=== PATIENT | male | born 1985 | race Caucasian/White ===

== ENCOUNTER 2021-01-24 23:40 | Observation (INO) | payer MEDICAID, SELFPAY ==
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
[2021-01-24 23:49] VITALS: BP 138/101; PULSE 100; RESP 16; O2SAT 98
[2021-01-25 00:25] LABS: *AMPHETAMINES SCREEN URINE Negative (Negative); *BARBITURATES SCREEN URINE Negative (Negative); *BENZODIAZEPINES SCREEN URINE Negative (Negative); Cannabinoids THC Negative (Negative); Cocaine Screen,Urine Negative (Negative); METHADONE URINE SCREEN Negative (Negative); OPIATES URINE SCREEN Negative (Negative); Tricyclic Antidepressants Negative (Negative)
[2021-01-25 00:51] LABS: Acetaminophen < 2 ug/mL (10-30); Salicylate < 2.8 mg/dL (<2.8)
[2021-01-25 00:55] LABS: ALT 37 U/L (16-63); Albumin 4.2 g/dL (3.4-5.0); Alkaline Phosphatase 92 U/L (46-116); Anion Gap 11.6 mmol/L (3-11); BUN 17 mg/dL (7-18); Bilirubin, Total 0.3 mg/dL (0.2-1.0); CO2 25.4 mmol/L (21.0-32.0); CREATININE 0.9 mg/dL (0.70-1.30); Calcium 8.8 mg/dL (8.5-10.1); Chloride 103 mmol/L (98-107); ETHANOL BLOOD 111.4 mg/dL (<3); Glucose 118 mg/dL (74-106); Potassium 3.4 mmol/L (3.5-5.1); Sodium 140 mmol/L (136-145); TSH (W/Ref FT4) 3.04 uIU/mL (0.36-3.74); Total Protein 8.2 g/dL (6.4-8.2)
[2021-01-25 01:00] LABS: AST 20 U/L (15-37)
--- NOTE | 2021-01-25 03:32 | PDOC.MHCN ---
Date of service: 01/25/21 Time of Service: 03:32 Mental Health Crisis Note Presenting Issue How did you arrive at the ED and why did you come: Client arrived at [facility] ED stating that he was: in the middle of a mental breakdown and needed to get help. Client states that he has been feeling this way for the past month since moving back to [place], but it has been getting increasingly worse the past 3 days. Precipitating Factors Client initially denies SI/HI with no plan or intent, however states that he would like to go to sleep and never wake up. Disposition BEHAVIOR: Client is laying down in bed when this commercial lines underwriter arrives in person, however sits right up and actively engages with this commercial lines underwriter. This commercial lines underwriter asks client on a scale of 0-10 with 0 being that he would be safe if he was to leave the hospital and 10 being that he would find a way to harm himself he rated himself a 7. EYE CONTACT: Client initially makes good eye contact, but as the assessment goes on his eye contact is distorted he is observed looking around the room and towards the ceiling when answering questions this commercial lines underwriter is asking him. MOOD: Clients mood appears to be depressed and hopeless and client states that he feels like he is in a hole that he cannot get out of. AFFECT: Flat affect APPETITE: Client states that his appetite has been fine. SLEEP(trouble falling/staying asleep: Client states that he does not sleep well, averaging about 2-3 hours a night. Plan Client will remain on voluntary status pending admission. Referrals will be sent to [facility] when all necessary lab and co-vid tests are completed. Signature Clinician's Name/Title: Nandini Jeffries [facility] Emergency Clinician
[2021-01-25 03:41] LABS: Source Nasal/Nares
[2021-01-25 03:48] LABS: Abs Immature Grans 0.04 10^3/uL (0.0-0.06); Absolute Basophil Count 0.07 10^3/uL (0.0-0.2); Absolute Eosinophil Count 0.36 10^3/uL (0.0-0.7); Absolute Lymphocyte Count 4.06 10^3/uL (1.2-3.4); Absolute Monocyte Count 0.65 10^3/uL (0.1-0.8); Basophils % 0.7; Eosinophils % 3.5; HCT 43.3 % (40.0-50.0); HGB 15.3 g/dL (13.5-17.5); Immature Grans % 0.4; Lymphocytes % 39.5; MCH 34.1 pg (27.0-33.0); MCHC 35.3 % (32.0-36.0); MCV 96.4 fL (80-95); MPV 8.4 fL (8.0-11.0); Monocytes % 6.3; Neutrophils % 49.6; Nucleated RBC 0 %; Platelet Count 278 10^3/uL (130-400); RBC 4.49 10^6/uL (4.36-5.78); RDW 11.8 % (11.8-14.1); RDW-SD 41.2 fL; WBC 10.28 10^3/uL (4.4-10.8)
[2021-01-25 04:42] VITALS: BP 123/81; PULSE 72; RESP 16; TEMP 36.6; O2SAT 99
[2021-01-25 05:01] LABS: COVID-19 PCR Negative (Negative)
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
[2021-01-25 07:35] LABS: Anion Gap 9.8 mmol/L (3-11); BUN 19 mg/dL (7-18); CO2 27.2 mmol/L (21.0-32.0); CREATININE 0.8 mg/dL (0.70-1.30); Calcium 8.8 mg/dL (8.5-10.1); Chloride 106 mmol/L (98-107); Glucose 107 mg/dL (74-106); Potassium 3.6 mmol/L (3.5-5.1); Sodium 143 mmol/L (136-145)
--- NOTE | 2021-01-25 09:31 | CMSP_ITS ---
- If Service Date Differs Date of service: 01/25/21 Time of Service: 09:31 Care Management Safety Plan Status: Voluntary - Reason for Wait Reason for Wait: Inpatient Admission Leonardo is a 35 year old male admitted to [facility] on 01/25/21 for depression, substance abuse and SI. Leonardo met with Sam from [facility] and elects to go to a co-occurring treatment facility for TAWANA and mental health. Sam states that [place] or [place] would be an appropriate placement and he would send referrals. VOLUNTARY FOR INPATIENT PSYCHIATRIC STABILIZATION. Patient is appropriate in all interactions since arriving at [facility]; Pt has demonstrated appropriate coping and communication skills, has articulated his or her needs and concerns and is fully engaged during staff interactions. Safety plan has been established with patient, and care team, to adhere to patient goals, identify restrictions based on behavioral status, address nutrition, and determine allowed personal belongings, tools for hygiene and personal care. Determine level of activity including ambulation, level of supervision, visitors, and determine privileges based on behaviors and level of engagement by pt. SAFETY PLAN: 1. Will remain on suicide precautions. In Paper Clothes 2. Will remain in room under direct supervision of one-on-one staff at all times provided by [employer]; IRENE, WAREHOUSE LOGISTICS MANAGER computer customer support specialist. 3. May have paper cups, plates, finger foods as well as a cardboard spoon with which to eat meals. 4. Follow [facility] Management of the Admitted Behavioral Health Patient policy. 5. Comfort bath system, shower permitted at RN discretion. 6. No personal belongings 7. Visitors-No visitors at this time 8. Activities: 9. Bathroom privileges 10. Phone: 11. Due to VOLUNTARY status, if patient wishes to leave [facility], staff will contact [facility] Crisis Screener ([phone]) and On-Call Soft Sugar Operator Head ([phone]) as soon as possible. In the event of elopement, notify [facility] Police ([phone]). Patient is currently voluntarily at [facility] and seeking inpatient admission when a bed becomes available. [facility] Frontline Drop Hammer Set Up Operator will continue seeking placement. Please contact the Physician Coder Soft Sugar Operator Head ([phone]) and [facility] Drop Hammer Set Up Operator ([phone]) for any needed changes in the Safety Plan. Safety plan has been provided to interdepartmental care team.
--- NOTE | 2021-01-25 09:31 | PDOC.CMSAFE ---
- If Service Date Differs Date of service: 01/25/21 Time of Service: 09:31 Care Management Safety Plan Status: Voluntary - Reason for Wait Reason for Wait: Inpatient Admission Leonardo is a 35 year old male admitted to [facility] on 01/25/21 for depression, substance abuse and SI. Leonardo met with Sam from [facility] and elects to go to a co-occurring treatment facility for TAWANA and mental health. Sam states that [place] or [place] would be an appropriate placement and he would send referrals. VOLUNTARY FOR INPATIENT PSYCHIATRIC STABILIZATION. Patient is appropriate in all interactions since arriving at [facility]; Pt has demonstrated appropriate coping and communication skills, has articulated his or her needs and concerns and is fully engaged during staff interactions. Safety plan has been established with patient, and care team, to adhere to patient goals, identify restrictions based on behavioral status, address nutrition, and determine allowed personal belongings, tools for hygiene and personal care. Determine level of activity including ambulation, level of supervision, visitors, and determine privileges based on behaviors and level of engagement by pt. SAFETY PLAN: 1. Will remain on suicide precautions. In Paper Clothes 2. Will remain in room under direct supervision of one-on-one staff at all times provided by [employer]; IRENE, PRINTED CIRCUIT BOARD PCB DRAFTSMAN senior ui ux developer. 3. May have paper cups, plates, finger foods as well as a cardboard spoon with which to eat meals. 4. Follow [facility] Management of the Admitted Behavioral Health Patient policy. 5. Comfort bath system, shower permitted at RN discretion. 6. No personal belongings 7. Visitors-No visitors at this time 8. Activities: 9. Bathroom privileges 10. Phone: 11. Due to VOLUNTARY status, if patient wishes to leave [facility], staff will contact [facility] Crisis Screener ([phone]) and On-Call Wine Sales Representative ([phone]) as soon as possible. In the event of elopement, notify [facility] Police ([phone]). Patient is currently voluntarily at [facility] and seeking inpatient admission when a bed becomes available. [facility] Frontline Floor Surfacer will continue seeking placement. Please contact the Oil Well Cable Tool Operator Wine Sales Representative ([phone]) and [facility] Floor Surfacer ([phone]) for any needed changes in the Safety Plan. Safety plan has been provided to interdepartmental care team.
[2021-01-25] MEDS: Potassium Chloride 20 MEQ TABCR PO ×2 (11:13→21:14)
[2021-01-25] MEDS: Multivitamin TAB 1 TAB PO (11:13)
[2021-01-25] MEDS: Folic Acid 1 MG TAB PO (11:14)
[2021-01-25] MEDS: Thiamine 100 MG TAB PO (11:14)
[2021-01-25 11:39] VITALS: BP 122/83; PULSE 78; RESP 19; TEMP 36.7; O2SAT 99
--- NOTE | 2021-01-25 13:44 | W.INMHPGNOTE ---
Date of service: 01/25/21 Time of Service: 10:15 Mental Health Crisis Note Presenting Issue How did you arrive at the ED and why did you come: The client presented to [facility] emergency department 9.. at 2340hrs with chief complaint of depression, suicidal ideation, and substance abuse. He is seen today following medical clearance. The client is a 35yo single unemployed male that resides with his mother in a 1 room shack without internet in [facility]. Reported diagnosis history of anxiety, depression, and PTSD and currently not prescribed any medications or seen for therapy. Client reportedly returned from [place] last month and began drinking hard liquor (1/3 bottle, 2-3x beverages) daily and has been methamphetamine twice per week for the past 6 months. ETOH 9.1.21 (1/2 bottle hard liquor, .111 JESSI upon ED admission), methamphetamine 8.30.21, 'micro dosing', unspecified amount, past 6+ months. Precipitating Factors The client is seen at [facility] medical surgical unit following clearance. He is alert and oriented to time, person, place, and global circumstance with no reported deficits in memory. He is cooperative and behaviorally appropriate throughout assessment process. Speech is coherent, normal rate and flat tone. Client reports feeling depressed with flat affect. Appetite normal. Sleep dysregulated (2-4 hrs. per night). No report or presenting evidence of delusions or hallucinations. Thought process appears logical and goal-directed. He states that his life has been a living hell since moving back to [place] and reports that he has been drinking daily, using methamphetamine, and getting into verbal altercations with his mother. He reports worsening depression and anxiety that has increased substantially over the last several days. He denies current SI/HI/SIB, intent or plan, however reports feeling suicidal absent a specific plan under the influence of alcohol as of late and reports not feeling safe to discharge home. He states I want to be alive, but I don't want to be alive like this. He goes on to report that an awareness of what he is capable of and discloses that he is too far gone to help himself anymore. Disposition BEHAVIOR: Calm, cooperative EYE CONTACT: Adaquate MOOD: Depressed AFFECT: Flat APPETITE: No reported issues. SLEEP(trouble falling/staying asleep: Dysregulated, 2-4hrs. per night Plan The client will remain at [facility] on voluntary status pending admission to appropriate facility for co-occurring mental health and substance abuse treatment. Discharge may be indicated if client so chooses or if he wishes to pursue alternative treatment at a lower level of care such as [facility]. [facility] and [facility] (accepting referrals, capacity under review). Signature Clinician's Name/Title: JANETH Johnson clinician / [facility]
--- NOTE | 2021-01-25 14:49 | PGE_ITS ---
Date of Service Date of service: 01/25/21 Time of Service: 14:49 Assessment and Plan Assessment and plan (1) Depression: Status: Chronic Assessment and plan: Longstanding h/o depression/anxiety/PTSD He endorses being on various antidepressants / mood stabilizers in the past. The most recent prescription was from a PCP in [facility] but hasn't taken anything for 3 months. He doesn't recall the name of the most recent antidepressant. He had previously been homeless and bumming around [place]. Currently not following a mental health provider and on no psychiatric medications. Mental health consulted and following. Qualifiers: Depression Type: major depressive disorder Major depression recurrence: unspecified whether recurrent Active/Remission status: currently active Major depression episode severity: severe Psychotic features: without psychotic features Qualified Code(s): F32.2 - Major depressive disorder, single episode, severe without psychotic features (2) Substance abuse: Status: Acute Assessment and plan: Etoh use daily. no signs of withdrawal, denies history of withdrawal. Methamphetamine and Heroin use intermittently. CIWA precautions. may benefit from inpatient substance abuse treatment. (3) Suicidal thoughts: Status: Acute Assessment and plan: Denies suicidal ideation at this time. continue CPSO, suicidal precautions discussed with Dr Campbell Subjective Subjective Patient reports: no new complaints, feels better, tolerating liquids well, tolerating a regular diet and afebrile Exam Const General: cooperative and no acute distress Nutritional Appearance: average body habitus Orientation: alert and oriented x3 Eyes General: appearance normal, both eyes and all related structures Sclera: sclerae normal Resp Effort & Inspection: normal respiratory effort Auscultation: clear to auscultation bilaterally Cardio Rate: regular rate Rhythm: regular rhythm Heart Sounds: S1 normal and S2 normal GI Palpation: soft and nontender Skin General skin exam: no rashes or lesions noted Extrem General: no pedal edema and no calf tenderness Psych Appearance: grossly normal Mental Status: mental status grossly normal Speech and Movement: speech and movement normal Affect: blunted Objective Last Vital Signs Temp 36.7 C 01/25/21 11:39 Pulse 78 01/25/21 11:39 Resp 19 01/25/21 11:39 BP 122/83 01/25/21 11:39 Pulse Ox 99 01/25/21 11:39 Laboratory Results - last 24 hr 01/25/21 01/25/21 01/25/21 00:00 00:25 00:25 WBC RBC Hgb Hct MCV MCH MCHC RDW Plt Count MPV Immature Gran % Neutrophils % Band Neutrophils % Lymphocytes % Atypical Lymphs % Monocytes % Eosinophils % Basophils % Metamyelocytes % Myelocytes % Promyelocytes % Other Cells % Nucleated RBC % Absolute Neutrophils Absolute Lymphocytes Absolute Monocytes Absolute Eosinophils Absolute Basophils RBC Morphology Polychromasia Hypochromasia Poikilocytosis Basophilic Stippling Anisocytosis Microcytosis Macrocytosis Spherocytes Tear Drop Cells Ovalocytes Stomatocytes [place] Bodies Marii Cells/Echinocytes Acanthocytes (Spur) Schistocytes Sodium 140 Potassium 3.4 L Chloride 103 Carbon Dioxide 25.4 Anion Gap 11.6 H BUN 17 Creatinine 0.9 Estimated GFR/1.73 m2 >= 60.00 Glucose 118 H Calcium 8.8 Total Bilirubin 0.3 AST 20 ALT 37 Alkaline Phosphatase 92 Total Protein 8.2 Albumin 4.2 TSH 3.04 Salicylates < 2.8 Urine Opiates Screen Negative Urine Methadone Screen Negative Acetaminophen < 2 Ur Barbiturates Screen Negative Ur Tricyclics Screen Negative Ur Amphetamines Screen Negative U Benzodiazepines Scrn Negative Urine Cocaine Screen Negative Ur THC Screen Negative Ethyl Alcohol 111.4 COVID-19 Source SARS-CoV-2 (PCR) 01/25/21 01/25/21 01/25/21 00:25 03:35 03:56 WBC Cancelled 10.28 RBC Cancelled 4.49 Hgb Cancelled 15.3 Hct Cancelled 43.3 MCV Cancelled 96.4 H MCH Cancelled 34.1 H MCHC Cancelled 35.3 RDW Cancelled 11.8 Plt Count Cancelled 278 MPV Cancelled 8.4 Immature Gran % Cancelled 0.4 Neutrophils % Cancelled 49.6 Band Neutrophils % Cancelled Lymphocytes % Cancelled 39.5 Atypical Lymphs % Cancelled Monocytes % Cancelled 6.3 Eosinophils % Cancelled 3.5 Basophils % Cancelled 0.7 Metamyelocytes % Cancelled Myelocytes % Cancelled Promyelocytes % Cancelled Other Cells % Cancelled Nucleated RBC % Cancelled 0 Absolute Neutrophils Cancelled 5.10 Absolute Lymphocytes Cancelled 4.06 H Absolute Monocytes Cancelled 0.65 Absolute Eosinophils Cancelled 0.36 Absolute Basophils Cancelled 0.07 RBC Morphology Cancelled Polychromasia Cancelled Hypochromasia Cancelled Poikilocytosis Cancelled Basophilic Stippling Cancelled Anisocytosis Cancelled Microcytosis Cancelled Macrocytosis Cancelled Spherocytes Cancelled Tear Drop Cells Cancelled Ovalocytes Cancelled Stomatocytes Cancelled [place] Bodies Cancelled Marii Cells/Echinocytes Cancelled Acanthocytes (Spur) Cancelled Schistocytes Cancelled Sodium Potassium Chloride Carbon Dioxide Anion Gap BUN Creatinine Estimated GFR/1.73 m2 Glucose Calcium Total Bilirubin AST ALT Alkaline Phosphatase Total Protein Albumin TSH Salicylates Urine Opiates Screen Urine Methadone Screen Acetaminophen Ur Barbiturates Screen Ur Tricyclics Screen Ur Amphetamines Screen U Benzodiazepines Scrn Urine Cocaine Screen Ur THC Screen Ethyl Alcohol COVID-19 Source Nasal/Nares SARS-CoV-2 (PCR) Negative 01/25/21 06:46 WBC RBC Hgb Hct MCV MCH MCHC RDW Plt Count MPV Immature Gran % Neutrophils % Band Neutrophils % Lymphocytes % Atypical Lymphs % Monocytes % Eosinophils % Basophils % Metamyelocytes % Myelocytes % Promyelocytes % Other Cells % Nucleated RBC % Absolute Neutrophils Absolute Lymphocytes Absolute Monocytes Absolute Eosinophils Absolute Basophils RBC Morphology Polychromasia Hypochromasia Poikilocytosis Basophilic Stippling Anisocytosis Microcytosis Macrocytosis Spherocytes Tear Drop Cells Ovalocytes Stomatocytes [place] Bodies Marii Cells/Echinocytes Acanthocytes (Spur) Schistocytes Sodium 143 Potassium 3.6 Chloride 106 Carbon Dioxide 27.2 Anion Gap 9.8 BUN 19 H Creatinine 0.8 Estimated GFR/1.73 m2 >= 60.00 Glucose 107 H Calcium 8.8 Total Bilirubin AST ALT Alkaline Phosphatase Total Protein Albumin TSH Salicylates Urine Opiates Screen Urine Methadone Screen Acetaminophen Ur Barbiturates Screen Ur Tricyclics Screen Ur Amphetamines Screen U Benzodiazepines Scrn Urine Cocaine Screen Ur THC Screen Ethyl Alcohol COVID-19 Source SARS-CoV-2 (PCR)
--- NOTE | 2021-01-25 15:15 | CHAPLAIN ---
Kirill was resting in bed when I visited, but sat up immediately and engaged in a conversation. His demeanor was pleasant. He told me that he had been away and had recently returned to [place], [place], had been living with his mom, but that wasn't working out. He didn't offer much more information, but said he was here to begin making some changes. I explained my role, offered support and let Kirill know that I'm available for conversation, and listening. According to Care Management and clinical notes, Kirill was screened in the ED for depression, suicidal ideation and substance abuse. He has been treated in the past for anxiety, depression and PTSD. He has stated that he would like help with his substance abuse and depression and is currently waiting for a bed to open up at a facility. He had been bumming around in [place], according to ED notes, returned to [place] about a month ago.
--- NOTE | 2021-01-25 17:10 | INITIAL_ITS ---
- If Service Date Differs Date of service: 01/25/21 Time of Service: 17:10 Care Management Initial Assess REASON FOR HOSPITALIZATION:: Depression, Substance Abuse, SI PAST MEDICAL HISTORY/PAST SURGICAL HISTORY:: Anxiety. Depression. PTSD (post- traumatic stress disorder). No significant past surgical history PREVIOUS FUNCTIONAL STATUS/SOCIAL/FAMILY SUPPORTS:: Leonardo is a 35yo single unemployed male that resides with his mother in a 1 room shack without internet in [place]. He shares at this point of time he has no supportive friends or family. Prior to coming to [place] he was homeless in [place]. CURRENT FUNCTIONAL STATUS:: Leonardo was sitting up in bed when CM met with him. He was pleasant, cooperative and appropriate. He advises that he has a virtual screening with Katheryn from the [employer] program tomorrow at 1130. This program helps with stable housing. Leonardo shares that going back to his mother's house is not an option, as he doesn't find her supportive. Leonardo shares that he met with Chr is from [facility] and is open to going to [place] or the [facility] for co- occuring treatment. ADVANCE DIRECTIVES:: None on file Has patient been provided with info about the portal/API?: Yes Did the patient sign up for the portal?: No CODE STATUS:: Full Code INSURANCE COVERAGE / FINANCIAL ISSUES:: Patient expressed interest in signing up for [facility] Medicaid. CM will consult with [facility]. CURRENT HOME/COMMUNITY SERVICES/EQUIPMENT:: [facility] (Stable Housing Resource) PRIMARY CARE PHYSICIAN:: Dr. Peng Oro ([place], [place]) POTENTIAL DISCHARGE NEEDS:: Tranportation to co-occuring treatment center. CM continues to support PATIENT/FAMILY EDUCATION NEEDS:: Review discharge instructions and plan to follow up with community providers TRANSPORTATION:: To be determined by disposition PLAN:: Leonardo will continue to be evaluated daily by [facility]. [facility] will continue to seek placement until that time. Anticipate transportation via [employer].
[2021-01-25] MEDS: Nicotine 14 MG/24 HR PATCH TD (17:30)
[2021-01-25 21:18] VITALS: BP 118/84; PULSE 70; RESP 18; TEMP 36.8; O2SAT 100
--- NOTE | 2021-01-25 22:57 | NUR.NOTE ---
Nursing Note: Pt was medically cleared by and moved to room 236 in transition area via ambulation at about 21:20 this evening. Pt was escorted by bhavya RN, Ivet Kimball RN, and Star BONILLA.
[2021-01-26] MEDS: Nicotine 14 MG/24 HR PATCH TD (08:26)
[2021-01-26] MEDS: Multivitamin TAB 1 TAB PO (08:27)
[2021-01-26] MEDS: Potassium Chloride 20 MEQ TABCR PO (08:27)
[2021-01-26] MEDS: Folic Acid 1 MG TAB PO (08:27)
[2021-01-26] MEDS: Thiamine 100 MG TAB PO (08:27)
[2021-01-26 08:34] VITALS: BP 124/83; PULSE 63; RESP 18; TEMP 35.7; O2SAT 99
--- NOTE | 2021-01-26 13:52 | W.INMHPGNOTE ---
Date of service: 01/26/21 Time of Service: 11:15 Mental Health Crisis Note Presenting Issue How did you arrive at the ED and why did you come: The client presented to [facility] emergency department 9.06.15 at 2340hrs with chief complaint of depression, suicidal ideation, and substance abuse. He is seen today for follow-up assessment. Precipitating Factors Client presents in paper scrub attire with adequate grooming. He is fully alert and oriented to time, person, place, and global circumstance with no deficits in memory reported. He is calm and cooperative throughout assessment and answers all questions. Speech is coherent, normal rate and tone. Excellent eye contact. Appetite and sleep reported as normal. No report or presenting evidence of delusions or hallucinations. Mood reported as I'm doing fine with euthymic affect. Client denies current SI/HI/SIB, intent or plan and reports feeling safe to discharge home. Client states that he has an intake appointment with LEONARDA at 11:30p and advises that a sober living program would most likely be the best for him at this juncture. Disposition BEHAVIOR: Calm, cooperative EYE CONTACT: Excellent MOOD: I'm doing fine. AFFECT: Euthymic APPETITE: No reported issues SLEEP(trouble falling/staying asleep: No reported issues Plan The client will complete a phone intake with [facility] supported living or look into a sober housing arrangement in [place] and proceed with next steps as indicated. Care management will be working on getting the client's [place] Medicaid reinstated - current insurance is not accepted at and and as such referrals have been declined at this time. The client has been cleared to discharge home and has agreed to outreach for additional support as needed or contact 911 if feeling unsafe. No additional services recommended at this time. Signature Clinician's Name/Title: Jerad Cordero [facility] clinician / hp
[2021-01-26 14:36] VITALS: BP 126/92; PULSE 72; RESP 17; TEMP 36.5; O2SAT 97
--- NOTE | 2021-01-26 17:25 | PDOC.CMDIS ---
- If Service Date Differs Date of service: 01/26/21 Time of Service: 17:25 LACE Index Scoring Tool - Questions: Length of Stay (in days): 2 Acuity (Admit via E.D.?): Yes E.D. Visits: 1 - Answers: Total Score: 6 Risk of Readmission: Low Risk Care Management Discharge Reason for Hospitalization: Depression, Substance Abuse, SI Discharge Plan: Leonardo was cleared by [facility] and discharged into the community. CM coordinated tranportation to [facility] via [facility]. CM supported him in making his self referral to [facility]. Patient/Family Education Needs: Review of discharge instructions and plan of care, ask me three. Services Needed at Discharge: Transportation - Disposition Disposition: Other ([facility] on [place], [place])
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
== END 2021-01-26 18:21 | disposition other institution (70) ==
LOC: ER 01-25 04:22 → MS 01-25 04:38
PROVIDERS: Admitting Provider Family Medicine; Emergency Provider Emergency Medicine; PCP Orthopaedic Surgery Pediatric Orthopaedic Surgery; Visit Provider Family Medicine
DX: F32.2 Major depressive disorder, single episode, severe without psychotic features (principal); R45.851 Suicidal ideations; F11.10 Opioid abuse, uncomplicated; F15.10 Other stimulant abuse, uncomplicated; F41.9 Anxiety disorder, unspecified; F43.10 Post-traumatic stress disorder, unspecified; F17.210 Nicotine dependence, cigarettes, uncomplicated; F10.10 Alcohol abuse, uncomplicated; E87.6 Hypokalemia
CPT/HCPCS: 36415; 80048; 80053; 80307; 87635; 99285; 80320; 80329; 84443; 85025; 99217; 99219; 99284; G0378

== ENCOUNTER 2022-04-25 08:08 | Emergency (ER) | payer MEDICAID, SELFPAY ==
[2022-04-25 08:11] VITALS: BP 127/98; PULSE 93; RESP 18; TEMP 36.6; O2SAT 99
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
== END 2022-04-25 09:54 | disposition home or self-care (01) ==
PROVIDERS: Emergency Provider Nurse Practitioner Family; PCP Orthopaedic Surgery Pediatric Orthopaedic Surgery
DX: H60.593 Other noninfective acute otitis externa, bilateral (principal); H65.03 Acute serous otitis media, bilateral
CPT/HCPCS: 99283

== ENCOUNTER 2022-08-16 22:26 | Emergency (ER) | payer MEDICAID, SELFPAY ==
[2022-08-16 22:35] VITALS: BP 104/69; PULSE 87; RESP 16; TEMP 36.6; O2SAT 96
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
[2022-08-16] MEDS: Cephalexin 500 MG CAP PO (22:52)
== END 2022-08-16 23:09 | disposition home or self-care (01) ==
PROVIDERS: Emergency Provider Emergency Medicine
DX: L03.012 Cellulitis of left finger (principal)
CPT/HCPCS: 99283; 99284

== ENCOUNTER 2022-09-23 08:50 | Emergency (ER) | payer MEDICAID, SELFPAY ==
[2022-09-23 08:54] VITALS: BP 113/84; PULSE 95; RESP 20; TEMP 36.8; O2SAT 98
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
--- NOTE | 2022-09-23 10:00 | DI.CT_ITS ---
Exam(s) CT NECK W EXAM: CT NECK W CLINICAL HISTORY: concerning for spreading. TECHNIQUE: Imaging Protocol: Axial computed tomography images with coronal and sagittal reformatted images were created and reviewed. CONTRAST MATERIAL: Intravenous: Omnipaque 350 Contrast volume:100mL COMPARISON: No exams were available for comparison FINDINGS: The examination is limited due to patient motion artifact. Orbits and orbital soft tissues: Within normal limits. Visualized paranasal sinuses: There is mucosal thickening in the right maxillary sinus and a few eth moid air cells. The remaining visualized paranasal sinuses and mastoid air cells are clear. Nasopharynx: Within normal limits. Oropharynx: Within normal limits. Hypopharynx: Within normal limits. Larynx: Within normal limits. Retropharyngeal space: Within normal limits. Parotids/submandibular: Within normal limits. Thyroid gland: Within normal limits. Lymphadenopathy: There are some mildly enlarged lymph nodes in the neck, right greater than left. T he largest measures 0.7 x 1.7 cm. These are likely reactive. Trachea: Within normal limits. Lung apices: Within normal limits. Bones: Within normal limits for the patient's age. Carotids/Jugular: Within normal limits. Soft tissues: There is soft tissue edema seen along the right mandible and submandibular tissues. No focal fluid collection is seen to suggest an abscess. IMPRESSION: 1. Findings of a cellulitis adjacent to the right mandible and submandibular region. No focal fluid collection to suggest an abscess. Mildly enlarged lymph nodes in the right neck which are likely amos ctive. 2. Findings were discussed with Juana Gloria at 11:50 a.m. on 09/23/2022. RADIATION DOSE DELIVERED: 372.96mGy.cm Total DLP 372.96mGy.cm Total DLP DATA REPOSITORY: All CT scans at this facility are submitted to the National Radiology Data Registry (NRDR) Dose Index Registry (DIR) with the [employer] ([employer]). RADIATION OPTIMIZATION: All CT scans at this facility use at least one of these dose optimization te chniques: automated exposure control; mA and/or kV adjustment per patient size (includes targeted exa ms where dose is matched to clinical indication); or iterative reconstruction.
[2022-09-23 10:19] LABS: Lactate 1.2 mmol/L (0.6-1.4)
[2022-09-23 10:20] LABS: Abs Immature Grans 0.04 10^3/uL (0.0-0.06); Absolute Basophil Count 0.04 10^3/uL (0.0-0.2); Absolute Eosinophil Count 0.05 10^3/uL (0.0-0.7); Absolute Lymphocyte Count 1.69 10^3/uL (1.2-3.4); Absolute Monocyte Count 1.36 10^3/uL (0.1-0.8); Basophils % 0.4; Eosinophils % 0.5; HCT 46.6 % (40.0-50.0); HGB 16.2 g/dL (13.5-17.5); Immature Grans % 0.4; Lymphocytes % 15.4; MCH 33.7 pg (27.0-33.0); MCHC 34.8 % (32.0-36.0); MCV 97 fL (80-95); MPV 8.4 fL (8.0-11.0); Monocytes % 12.4; Neutrophils % 70.9; Platelet Count 361 10^3/uL (130-400); RBC 4.81 10^6/uL (4.36-5.78); RDW 12.4 % (11.8-14.1); RDW-SD 44.3 fL; WBC 10.98 10^3/uL (4.4-10.8)
[2022-09-23 10:21] LABS: Absolute Neutrophil Count 7.78 10^3/uL (1.2-6.7)
[2022-09-23] MEDS: CLINDAMYCIN 900 MG/50 ML BAG 50 MG IVPB (10:25)
[2022-09-23] MEDS: Normal Saline 1,000 ML 1000 ML IV (10:26)
[2022-09-23 10:37] LABS: ALT 31 U/L (16-63); AST 20 U/L (15-37); Albumin 3.6 g/dL (3.4-5.0); Alkaline Phosphatase 102 U/L (46-116); Anion Gap 9.7 mmol/L (3-11); BUN 13 mg/dL (7-18); Bilirubin, Total 0.4 mg/dL (0.2-1.0); CO2 26.3 mmol/L (21.0-32.0); CREATININE 1.5 mg/dL (0.70-1.30); Calcium 9.4 mg/dL (8.5-10.1); Chloride 104 mmol/L (98-107); Estimated GFR 61.11 (mL/min/1.73m2); Glucose 135 mg/dL (74-106); Potassium 3.8 mmol/L (3.5-5.1); Sodium 140 mmol/L (136-145); Total Protein 8.4 g/dL (6.4-8.2)
[2022-09-23] MEDS: Normal Saline - Diluent 50 ML VIAL IJ (11:22)
[2022-09-23] MEDS: Omnipaque 350 MG/ML 500 ML BTL-Imaging package 100 ML IJ (11:23)
[2022-09-23] MEDS: Normal Saline Flush 10 ML SYR IVP (11:24)
[2022-09-23 12:18] VITALS: BP 123/85; PULSE 82; RESP 18; O2SAT 97
--- NOTE | 2022-09-23 14:37 | CMPROGNOTE_ITS ---
- If Service Date Differs Date of service: 09/23/22 Time of Service: 10:00 Care Management Progress Note MICHAEL was asked to meet with patient to discuss follow up care and assess for needs. Patient stated that he relocated to [place] about a year ago. He had been staying with his mother but has moved out. We don't get along very well. He stated he is couch surfing with friends. Leonardo did state that he met with Emily from [facility] in the past and that he was supposed to see her in July, but missed the appointment. She was trying to help him acquire [place] Medicaid; he currently has [place] Medicaid. Leonardo was also supposed to see a new PCP, but failed to keep that appointment as well. A referral will be sent to [facility]'s [facility] for a follow up appointment. CM also contacted [facility] to reconnect Leonardo with their services. During the meeting, Leonardo shared that he has had a long mental health history with depression and suicidal thoughts. He currently denies SI. He informed CM that he had been sober for 9 years but is currently shooting heroin every day. He shared that he has thought about going into rehab but has not definitely decided to do that. He stated that he came to the ED because of a tooth infection and hopes to clear that up first.
== END 2022-09-23 12:27 | disposition home or self-care (01) ==
PROVIDERS: Emergency Provider Physician Assistant
DX: K08.89 Other specified disorders of teeth and supporting structures (principal); R22.0 Localized swelling, mass and lump, head; R46.89 Other symptoms and signs involving appearance and behavior; R59.0 Localized enlarged lymph nodes
CPT/HCPCS: 36415; 70491; 80053; 96361; 96365; 99285; 83605; 85025; 99284

== ENCOUNTER 2022-11-29 20:49 | Inpatient (IN) | payer MEDICAID, SELFPAY ==
[2022-11-29 21:04] VITALS: BP 115/78; PULSE 90; RESP 16; TEMP 36.5; O2SAT 100
--- NOTE | 2022-11-29 22:30 | DI.CT_ITS ---
Exam(s) CT LOWER EXTREMITY RT W EXAM: CT LOWER EXTREMITY RT W CLINICAL HISTORY: Purulent Cellulitis,. TECHNIQUE: Imaging Protocol: Axial computed tomography images with coronal and sagittal reformatted images were created and reviewed. CONTRAST MATERIAL: Intravenous: Omnipaque 350 Contrast volume:100 ml Contrast route:IV - COMPARISON: No exams were available for comparison FINDINGS: Bones: No evidence of fracture. No suspicious bony lesions. No knee joint effusion. The arteries appear patent. Circumscribed fluid collection in subcutaneous fat anterior to the level of the patellar tendon measu ring 3.5 cm in length by 1.3 cm AP by 4.2 cm transverse. Diffuse anterior edema is seen in the subcu taneous fat at the level of the knee. Significant edema also present at the level of the ankles. IMPRESSION: Focal collection in the anterior subcutaneous fat at the level of the patellar tendon could represent an abscess. RADIATION DOSE DELIVERED: 338.1mGy.cm Total DLP DATA REPOSITORY: All CT scans at this facility are submitted to the National Radiology Data Registry (NRDR) Dose Index Registry (DIR) with the [employer] (A[employer]). RADIATION OPTIMIZATION: All CT scans at this facility use at least one of these dose optimization te chniques: automated exposure control; mA and/or kV adjustment per patient size (includes targeted exa ms where dose is matched to clinical indication); or iterative reconstruction.
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
[2022-11-29 23:16] LABS: Lactate 1.4 mmol/L (0.6-1.4)
[2022-11-29 23:17] LABS: Abs Immature Grans 0.09 10^3/uL (0.0-0.06); Absolute Lymphocyte Count 1.24 10^3/uL (1.2-3.4); Absolute Neutrophil Count 15.29 10^3/uL (1.2-6.7); Basophils % 0.3; Eosinophils % 0.2; HCT 44.9 % (40.0-50.0); HGB 15.6 g/dL (13.5-17.5); Immature Grans % 0.5; Lymphocytes % 6.8; MCH 33.5 pg (27.0-33.0); MCHC 34.7 % (32.0-36.0); MCV 96 fL (80-95); MPV 8.6 fL (8.0-11.0); Monocytes % 8.4; Neutrophils % 83.8; Platelet Count 304 10^3/uL (130-400); RBC 4.66 10^6/uL (4.36-5.78); RDW 12.1 % (11.8-14.1); RDW-SD 42.8 fL; WBC 18.25 10^3/uL (4.4-10.8)
[2022-11-29 23:18] LABS: Absolute Basophil Count 0.05 10^3/uL (0.0-0.2); Absolute Eosinophil Count 0.04 10^3/uL (0.0-0.7); Absolute Monocyte Count 1.53 10^3/uL (0.1-0.8)
[2022-11-29 23:20] LABS: Diff Comment Agrees w/ Instrument; RBC Morphology Normal
[2022-11-29 23:29] LABS: ETHANOL BLOOD < 3.0 mg/dL (<10)
[2022-11-29 23:30] LABS: ESR 13 mm/hr (0-15)
[2022-11-29 23:42] LABS: ALT 16 U/L (16-63); AST 14 U/L (15-37); Alkaline Phosphatase 112 U/L (46-116); Anion Gap 10.7 mmol/L (3-11); BUN 11 mg/dL (7-18); Bilirubin, Total 0.9 mg/dL (0.2-1.0); C-Reactive Protein 14.31 mg/dL (0.0-0.3); CO2 29.3 mmol/L (21.0-32.0); CREATININE 0.9 mg/dL (0.70-1.30); Calcium 9.4 mg/dL (8.5-10.1); Chloride 98 mmol/L (98-107); Estimated GFR 112.81 (mL/min/1.73m2); Glucose 116 mg/dL (74-106); Magnesium 2.2 mg/dL (1.8-2.4); Potassium 3.7 mmol/L (3.5-5.1); Sodium 138 mmol/L (136-145); Total Protein 8.9 g/dL (6.4-8.2)
[2022-11-29] MEDS: Omnipaque 350 MG/ML 100 ML BTL IJ (23:49)
[2022-11-29] MEDS: Normal Saline - Diluent 50 ML VIAL IJ (23:50)
--- NOTE | 2022-11-30 00:50 | DI.VRAD_ITS ---
PROCEDURE INFORMATION: Exam: CT Right Lower Extremity With Contrast Exam date and time: 11/29/2022 11:35 PM Age: 37 years old Clinical indication: Cellulitis; Ankle and calf and foot and knee and lower leg and thigh and toes; Right; Patient HX: PT states leg infection from poison reg that did not heal; Additional info: Purulent cellulitis TECHNIQUE: Imaging protocol: CT of the right lower extremity with intravenous contrast was performed. 3D rendering (Not supervised by radiologist): MIP and/or 3D reconstructed images were created by the technologist. Radiation optimization: All CT scans at this facility use at least one of these dose optimization techniques: automated exposure control; mA and/or kV adjustment per patient size (includes targeted exams where dose is matched to clinical indication); or iterative reconstruction. Contrast material: OMNI 350; Contrast volume: 100 ml; Contrast route: INTRAVENOUS (IV); COMPARISON: No relevant prior studies available. FINDINGS: Bones/joints: Mild lateral patellar subluxation. Osseous alignment is otherwise normal. No acute fracture or arthritic change. No significant joint fluid. Soft tissues: Diffuse subcutaneous soft tissue edema noted at the anteromedial and lateral aspect of the right. Subcutaneous soft tissue edema also noted at the medial aspect of the right ankle. No loculated soft tissue fluid collection. IMPRESSION: Subcutaneous soft tissue edema of the right knee and ankle which may represent bland edema or cellulitis. No evidence of abscess. No osseous or vascular. Dictated and Authenticated by: Bin Ford MD. Ordering:MARSHA Mena MD
[2022-11-30] MEDS: VANCOMYCIN 1,000 MG in Normal Saline 250 ML 166.6666 MG IVPB (00:56)
[2022-11-30 01:11] LABS: Bilirubin Negative (Negative); Blood Negative (Negative); Clarity Clear (Clear); Glucose Negative (Negative); Ketones Negative (Negative); Leukocyte Esterase Negative (Negative); Nitrite Negative (Negative); Specific Gravity 1.015 (1.005-1.025); pH 6.5 (5-8)
[2022-11-30 01:19] LABS: Bacteria Rare HPF (Negative); C & S Indicated? No; Casts Negative LPF (Negative); Crystals Negative HPF (Negative); Epithelial Cells Rare HPF (Negative); Mucus Negative (Negative); RBC Negative HPF (0-2); WBC Negative HPF (0-5)
[2022-11-30 01:29] LABS: *AMPHETAMINES SCREEN URINE Negative (Negative); *BARBITURATES SCREEN URINE Negative (Negative); *BENZODIAZEPINES SCREEN URINE Negative (Negative); Cannabinoids THC Negative (Negative); Cocaine Screen,Urine Positive (Negative); METHADONE URINE SCREEN Negative (Negative); OPIATES URINE SCREEN Negative (Negative)
[2022-11-30 01:30] LABS: Tricyclic Antidepressants Negative (Negative)
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
[2022-11-30 02:07] VITALS: BP 122/75; PULSE 88; RESP 16; TEMP 36.5; O2SAT 95
[2022-11-30 02:31] VITALS: BP 108/73; PULSE 83; RESP 16; TEMP 37.2; O2SAT 99
[2022-11-30] MEDS: Buprenorphine/Naloxone 4 mg/1 mg FILM 1 EACH SL ×2 (03:31→10:36)
[2022-11-30 06:11] LABS: Abs Immature Grans 0.08 10^3/uL (0.0-0.06); Absolute Monocyte Count 1.55 10^3/uL (0.1-0.8); Absolute Neutrophil Count 12.44 10^3/uL (1.2-6.7); Basophils % 0.3; Eosinophils % 0.3; HCT 39.4 % (40.0-50.0); HGB 13.4 g/dL (13.5-17.5); Immature Grans % 0.5; Lymphocytes % 6.6; MCH 32.6 pg (27.0-33.0); MCV 96 fL (80-95); MPV 8.4 fL (8.0-11.0); Monocytes % 10.2; Neutrophils % 82.1; Platelet Count 266 10^3/uL (130-400); RBC 4.11 10^6/uL (4.36-5.78); RDW 12.1 % (11.8-14.1); RDW-SD 42.2 fL; WBC 15.15 10^3/uL (4.4-10.8)
[2022-11-30 06:26] LABS: Absolute Basophil Count 0.05 10^3/uL (0.0-0.2); Absolute Eosinophil Count 0.05 10^3/uL (0.0-0.7)
--- NOTE | 2022-11-30 06:31 | NUR.NOTE ---
R lower leg cleansed and wet to dry dressing applied.Nursing Note:
[2022-11-30 06:33] LABS: Anion Gap 7.5 mmol/L (3-11); BUN 12 mg/dL (7-18); CO2 28.5 mmol/L (21.0-32.0); CREATININE 0.9 mg/dL (0.70-1.30); Calcium 8.5 mg/dL (8.5-10.1); Chloride 105 mmol/L (98-107); Estimated GFR 112.81 (mL/min/1.73m2); Glucose 117 mg/dL (74-106); Potassium 3.7 mmol/L (3.5-5.1); Sodium 141 mmol/L (136-145)
[2022-11-30 06:50] LABS: Diff Comment Diff Reviewed; RBC Morphology Normal
[2022-11-30 07:40] VITALS: BP 112/81; PULSE 86; RESP 16; TEMP 38.3; O2SAT 97
[2022-11-30] MEDS: Acetaminophen 325 MG TAB PO ×2 (08:01→14:37)
[2022-11-30] MEDS: Nicotine 21 MG/24 HR PATCH TD (08:02)
[2022-11-30] MEDS: DULoxetine 30 MG CAP PO (08:02)
[2022-11-30] MEDS: diazePAM 5 MG TAB PO ×3 (10:36→20:54)
[2022-11-30] MEDS: Normal Saline Flush 10 ML SYR IVP (10:37)
[2022-11-30] MEDS: Ondansetron 4 MG/2 ML VIAL IVP (10:37)
[2022-11-30] MEDS: VANCOMYCIN/WATER (PEG) 1.25 GM/250 ML BAG IV (11:46)
[2022-11-30] MEDS: Normal Saline 500 ML 10 ML IV (11:50)
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
[2022-11-30 14:35] VITALS: TEMP 36.3
[2022-11-30 15:10] VITALS: BP 94/59; PULSE 46; RESP 14; TEMP 35.9; O2SAT 98
[2022-11-30 23:15] VITALS: BP 101/52; PULSE 62; RESP 14; TEMP 35.8; O2SAT 98
[2022-12-01] MEDS: VANCOMYCIN/WATER (PEG) 1.25 GM/250 ML BAG IV ×2 (00:16→11:45)
[2022-12-01] MEDS: hydrOXYzine HCL 25 MG TAB PO (00:32)
[2022-12-01] MEDS: diazePAM 5 MG TAB PO ×3 (04:10→13:44)
[2022-12-01 07:04] LABS: Abs Immature Grans 0.03 10^3/uL (0.0-0.06); Absolute Basophil Count 0.05 10^3/uL (0.0-0.2); Absolute Eosinophil Count 0.17 10^3/uL (0.0-0.7); Absolute Lymphocyte Count 1.76 10^3/uL (1.2-3.4); Basophils % 0.4; Eosinophils % 1.4; HCT 38.2 % (40.0-50.0); HGB 13.6 g/dL (13.5-17.5); Immature Grans % 0.2; Lymphocytes % 14.2; MCH 33.7 pg (27.0-33.0); MCHC 35.6 % (32.0-36.0); MCV 95 fL (80-95); MPV 8.9 fL (8.0-11.0); Monocytes % 9.8; Platelet Count 277 10^3/uL (130-400); RBC 4.03 10^6/uL (4.36-5.78); RDW 11.9 % (11.8-14.1); RDW-SD 41.7 fL; WBC 12.41 10^3/uL (4.4-10.8)
[2022-12-01 07:12] LABS: Absolute Monocyte Count 1.22 10^3/uL (0.1-0.8); Absolute Neutrophil Count 9.18 10^3/uL (1.2-6.7)
[2022-12-01 07:46] VITALS: BP 98/63; PULSE 76; RESP 20; TEMP 37; O2SAT 97
[2022-12-01] MEDS: DULoxetine 30 MG CAP PO (08:38)
[2022-12-01] MEDS: Normal Saline Flush 10 ML SYR IVP ×2 (08:39→11:46)
[2022-12-01] MEDS: Nicotine 21 MG/24 HR PATCH TD (08:46)
[2022-12-01] MEDS: Acetaminophen 325 MG TAB PO ×2 (09:54→15:49)
[2022-12-01 11:41] LABS: Vancomycin, Trough 7.3 ug/mL (10.0-20.0)
[2022-12-01 15:20] VITALS: BP 118/79; PULSE 55; RESP 14; TEMP 36.2; O2SAT 98
--- NOTE | 2022-12-01 16:03 | PGE_ITS ---
Date of Service Date of service: 12/01/22 Time of Service: 16:06 Assessment and Plan Assessment and plan (1) Cellulitis of right leg: Status: Acute Assessment and plan: CT is not c/w septic knee. On blood culture (aerobic) tube growing gram + cocci. Culture of pustule growing group A strep and mixed elana. Will continue vancomycin. (2) Opioid use disorder, moderate, dependence: Status: Acute Assessment and plan: He clearly has opoid use disorder and would benefit from medical treatment. After discussion with admitting hospitalist, suboxone was initiated. Given 2 doses yesterday of 4mg each. Give 8mg today and then 16mg daily starting in AM. (3) Anxiety: Assessment and plan: He has had improvement in depression and anxiety with duloxetine and continue. Given valium yesterday. Will d/c. PRN hydroxyzine. (4) Smoker: Status: Acute Assessment and plan: NRT prn (5) DVT prophylaxis: Status: Acute Assessment and plan: Low risk, not indicated. (6) Discharge planning issues: Status: Acute Assessment and plan: He should get IV antibiotics, home when improving, hopefully culture will help guide therapy. He will need coordiation for TAWANA treatment with PCP or treatment center. Subjective Subjective Patient reports: no new complaints, feels better and afebrile; denies nausea, vomiting or shortness of breath Exam Narrative Exam Narrative: GEN: Pleasant and interactive. LUNGS: CTAB with normal effort CV: RRR with no murmurs ABD: +BS, soft, NT/ND EXT: No edema or calf tenderness. MSK: right knee mildly tender anteriorly. No clear effusion, no erythema. NEURO: Normal movement of 4 extremities. Normal speech and coordination SKIN: scabbed ulcerations scattered on arms, no surrounding erythema. Right leg with scattered scabbed over lesions. PSYCH: affect appropriate. A&O x 3. Objective Last Vital Signs Temp 36.2 C L 12/01/22 15:20 Pulse 55 L 12/01/22 15:20 Resp 14 12/01/22 15:20 BP 118/79 12/01/22 15:20 Pulse Ox 98 12/01/22 15:20 Laboratory Results - last 24 hr 12/01/22 12/01/22 06:32 11:00 WBC 12.41 H RBC 4.03 L Hgb 13.6 Hct 38.2 L MCV 95 MCH 33.7 H MCHC 35.6 RDW 11.9 Plt Count 277 MPV 8.9 Immature Gran % 0.2 Neutrophils % 74.0 Lymphocytes % 14.2 Monocytes % 9.8 Eosinophils % 1.4 Basophils % 0.4 Nucleated RBC % 0.0 Absolute Neutrophils 9.18 H Absolute Lymphocytes 1.76 Absolute Monocytes 1.22 H Absolute Eosinophils 0.17 Absolute Basophils 0.05 Vancomycin Trough 7.3 L Time Spent with Patient Time Spent with Patient: 25-34 minutes Time was spent: preparing to see the patient(eg.review tests), obtaining and/or reviewing separately otained hiistory, ordering medications,tests, procedures, referring, communicating with other health pediatric critical care nurse and indepentently interpreting results
[2022-12-01] MEDS: VANCOMYCIN/WATER (PEG) 750 MG/150 ML BAG 150 MG IV (17:59)
[2022-12-01] MEDS: Buprenorphine/Naloxone 8 mg/2 mg FILM 1 EACH SL (18:40)
[2022-12-01 20:01] VITALS: BP 105/66; PULSE 60; RESP 16; TEMP 36.2; O2SAT 97
[2022-12-02] MEDS: Normal Saline Flush 10 ML SYR IVP ×2 (00:37→05:36)
[2022-12-02] MEDS: VANCOMYCIN/WATER (PEG) 750 MG/150 ML BAG 150 MG IV ×4 (00:37→17:41)
[2022-12-02 00:50] VITALS: BP 111/74; PULSE 75; RESP 16; TEMP 36.4; O2SAT 96
[2022-12-02 07:15] LABS: Abs Immature Grans 0.05 10^3/uL (0.0-0.06); Absolute Basophil Count 0.06 10^3/uL (0.0-0.2); Absolute Eosinophil Count 0.31 10^3/uL (0.0-0.7); Absolute Monocyte Count 1.01 10^3/uL (0.1-0.8); Absolute Neutrophil Count 5.87 10^3/uL (1.2-6.7); Basophils % 0.6; Eosinophils % 3.3; HCT 39.3 % (40.0-50.0); HGB 13.8 g/dL (13.5-17.5); Immature Grans % 0.5; Lymphocytes % 21.5; MCH 33.5 pg (27.0-33.0); MCHC 35.1 % (32.0-36.0); MCV 95 fL (80-95); MPV 9.1 fL (8.0-11.0); Monocytes % 10.9; Neutrophils % 63.2; Platelet Count 330 10^3/uL (130-400); RBC 4.12 10^6/uL (4.36-5.78); RDW 12.1 % (11.8-14.1); RDW-SD 41.9 fL
[2022-12-02 07:17] VITALS: BP 116/78; PULSE 79; RESP 18; TEMP 37; O2SAT 98
--- NOTE | 2022-12-02 07:28 | DI.US_ITS ---
APPROVED REPORT EXAM: Comprehensive 2D, Doppler, and color-flow Echocardiogram Patient Location: In-Patient Room/Bed: [address] Consultant: Sara Lemus RDCS (AE) Indications: Staph bacteremia, IV drug abuse Other Information Study Quality: Adequate Conclusion Normal left ventricular wall thickness and chamber size. Ejection fraction is 57%. Wall motion is n ormal Normal right ventricular size and systolic function Both atria are normal in size There are no structural or hemodynamically significant valvular abnormalities. No vegetations are se en Estimated right ventricular systolic pressure is 21 mmHg Wall motion Left Ventricle The left ventricle is normal size. The left ventricular systolic function is normal. The left ventric ular ejection fraction is within the normal range. There is normal left ventricular wall thickness. T here is normal LV segmental wall motion. There is no ventricular septal defect visualized. LVEF is 57 %. Right Ventricle The right ventricle is normal size. The right ventricular systolic function is normal. The RVSP is 21 .3 mmHg. Atria The left atrium size is normal. The right atrium size is normal. The interatrial septum is intact wit h no evidence for an atrial septal defect. Aortic Valve The aortic valve is normal in structure. Aortic valve is trileaflet. There is no aortic valvular sten osis. No aortic regurgitation is present. Mitral Valve The mitral valve is normal in structure. No evidence of mitral valve stenosis. Trace mitral regurgita tion. There is no evidence of mitral valve vegetations. Tricuspid Valve The tricuspid valve is normal in structure. There is no tricuspid valve stenosis. Mild tricuspid regu rgitation. There is no tricuspid valve vegetations. Pulmonic Valve Pulmonic valve is not well visualized. There is no pulmonic valvular stenosis. There is no pulmonic v alvular regurgitation. Great Vessels The aortic root is normal in size. Ascending aorta is not well visualized. Aortic arch is normal in c aliber. IVC is normal in size and collapses >50% with inspiration. Pericardium There is no pericardial effusion. 2D Dimensions IVSD d PLAX 0.86 cm M: 0.6-1.2 LV Vol A2C d MOD 121.2 mL LVPW d PLAX 0.86 cm M: 0.6 - 1.2 LV Vol A4C d MOD 117.4 mL LVID d PLAX 4.75 cm M: 4.2 - 5.8 LA vol/ BSA A2C s A-L 29.5 mL/m2 LVDs 3.20 cm M: 2.5 - 4.0 LA vol/ BSA A4C s A-L 15.1 mL/m2 Ao Root d 2.88 cm M: 3.1 - 3.7 LA Vol/ BSA Biplane s A-L 22.8 mL/m2 RA Area A4C 14.53 cm2 LA Area A4C s MOD 13.03 cm2 RA Vol/ BSA A4C s A-L 18.9 mL/m2 LA Area A2C s MOD 19.68 cm2 LV EF Teichholz 60.5 % LV EF A4C MOD 55.5 % LVEF (Solomon's) 57.35 % M: 52 - 72 LV EF A2C MOD 58.6 % LV Volume 89.25 mL M: 62 - 150 LV EF Biplane MOD 57.4 % LV Volume Index 42.29 mL/m2 M: 34 - 74 SV 69.49 mL LV Vol Biplane MOD 121.2 mL SV Index 32.89 mL/m2 FS 32.30 % M-Mode TAPSE 1.95 cm (M/F) >1.7 LV Diastology MV E' medial 0.112 (>0.07 m/s) E/A Ratio 1.2 LV E/e MED 7.00 (<14) MV E Vmax 0.79 (0.4-1.3 m/s) MV E' lateral 0.194 (>0.1 m/s) MV A Vmax 0.65 (0.4-1.3 m/s) LV E/e LAT 4.05 (<14) MV E/A Ratio 1.20 MV E/E' medial 7.05 MV E/E' lateral 4.08 Aortic Valve LVOT Area 3.57 cm2 AoV Area Vmax 2.87 cm2 LVOT Vmax 1.06 m/s AoV Area/ BSA (Vmax) 1.36 cm2/m2 LVOT Mean Mohinder. 0.71 m/s JAVY Mean Mohinder. 2.57 cm2 LVOT Peak Grad 4.5 mmHg JAVY Mean Mohinder. Index 1.21 cm2/m2 LVOT Mean Grad 2.4 mmHg LVOT VTI 0.197 m LVOT Diam s 2.10 cm AoV Vmax 1.31 m/s Velocity Ratio 0.81 AoV Mean Mohinder. 0.99 m/s AoV Peak Grad 6.9 mmHg LVOT SV 70.31 mL AoV Mean Grad 4.2 mmHg AoV VTI 0.255 m AoV Area VTI 2.76 cm2 AoV Area/ BSA (VTI) 1.30 cm/m2 Mitral Valve MV DT 192 (160-240 msec) MV PHT 56 msec MV Area PHT 3.95 cm2 MV VTI 0.262 m MV Area VTI 2.68 (4.0-6.0 cm2) Pulmonary Valve PV Vmax 1.11 (0.5-1.5 m/s) RVOT Peak Gr. 1.38 mmHg PV Peak Grad 4.9 mmHg RVOT Mean Gr. 0.90 mmHg PV Mean Grad 3.1 mmHg RVOT VTI 0.090 m PV VTI 0.207 m RVOT Vmax 0.59 m/s Tricuspid Valve TR Peak Grad 18.2 mmHg TR Vmax 2.14 m/s RA Pressure 3.00 mmHg RVSP (TR) 21.3 mmHg
[2022-12-02 07:38] LABS: ALT 34 U/L (16-63); AST 24 U/L (15-37); Albumin 2.7 g/dL (3.4-5.0); Alkaline Phosphatase 98 U/L (46-116); Anion Gap 11.1 mmol/L (3-11); BUN 14 mg/dL (7-18); Bilirubin, Total 0.2 mg/dL (0.2-1.0); CO2 25.9 mmol/L (21.0-32.0); CREATININE 0.8 mg/dL (0.70-1.30); Calcium 8.6 mg/dL (8.5-10.1); Chloride 104 mmol/L (98-107); Glucose 94 mg/dL (74-106); Potassium 3.5 mmol/L (3.5-5.1); Sodium 141 mmol/L (136-145); Total Protein 6.8 g/dL (6.4-8.2)
[2022-12-02] MEDS: Buprenorphine/Naloxone 8 mg/2 mg FILM 2 EACH SL (08:46)
[2022-12-02] MEDS: DULoxetine 30 MG CAP PO (08:47)
[2022-12-02 11:12] VITALS: BP 114/76; PULSE 74; RESP 18; TEMP 36.7; O2SAT 97
[2022-12-02 15:21] VITALS: BP 109/70; PULSE 56; RESP 14; TEMP 36.3; O2SAT 98
--- NOTE | 2022-12-02 15:39 | PDOC.CMPRO ---
Date of service: 12/02/22 Time of Service: 15:39 Care Management Progress Note Progress Note Text Progress Note Text: S/O: Kirill continues to be closely monitored. CM attempted to connect with Cement Worker today, without response; CM called [facility] who advised pager was correct avenue-Anne reportedly covering today. CM will attempt to connect again tomorrow. CM continues to follow. A: 37 year old male admitted to [facility] 11/30/22 for Cellulitis P: Leonardo will return home once medically cleared. He will transport via private vehicle. PCP Tele-doc protocol as Leonardo does not currently have a provider (T-doc: [facility]) CM faxed referral today (12/02/22) for follow up in the community. CM will continue to follow.
--- NOTE | 2022-12-02 18:21 | W.PM.PROGNOT ---
Date of Service Date of service: 12/02/22 Time of Service: 18:22 Assessment and Plan Assessment and plan (1) Cellulitis of right leg: Status: Acute Assessment and plan: CT is not c/w septic knee. One blood culture (aerobic) tube growing gram + cocci and gram neg cedric. Culture of pustule growing group A strep and mixed elana. Will continue vancomycin. The blood culture + tube (1 of 2) is likely contaminant. (2) Opioid use disorder, moderate, dependence: Status: Acute Assessment and plan: He clearly has opoid use disorder and would benefit from medical treatment. After discussion with admitting hospitalist, suboxone was initiated. Getting x2 SL films of 8mg-2mg. Doing well. (3) Anxiety: Assessment and plan: He has had improvement in depression and anxiety with duloxetine and continue. Given valium for 1 day then d/c'd. PRN hydroxyzine. (4) Smoker: Status: Acute Assessment and plan: NRT prn (5) DVT prophylaxis: Status: Acute Assessment and plan: Low risk, not indicated. (6) Discharge planning issues: Status: Acute Assessment and plan: He should get IV antibiotics, home when improving, hopefully culture will help guide therapy. He will need coordiation for TAWANA treatment with PCP or treatment center. Sobriety assistant golf coach to meet with him. Subjective Subjective Patient reports: no new complaints, feels better, tolerating a regular diet and afebrile; denies shortness of breath Exam Narrative Exam Narrative: GEN: Pleasant and interactive. LUNGS: CTAB with normal effort CV: RRR with no murmurs ABD: +BS, soft, NT/ND EXT: No edema or calf tenderness. NEURO: Normal movement of 4 extremities. Normal speech and coordination SKIN: scabbed ulcerations scattered on arms, no surrounding erythema. Right leg with scattered scabbed over lesions. Distal right knee with dusky red discoloration. PSYCH: affect appropriate. A&O x 3. Objective Last Vital Signs Temp 36.3 C L 12/02/22 15:21 Pulse 56 L 12/02/22 15:21 Resp 14 12/02/22 15:21 BP 109/70 12/02/22 15:21 Pulse Ox 98 12/02/22 15:21 Laboratory Results - last 24 hr 12/02/22 12/02/22 06:20 06:20 WBC 9.30 RBC 4.12 L Hgb 13.8 Hct 39.3 L MCV 95 MCH 33.5 H MCHC 35.1 RDW 12.1 Plt Count 330 MPV 9.1 Immature Gran % 0.5 Neutrophils % 63.2 Lymphocytes % 21.5 Monocytes % 10.9 Eosinophils % 3.3 Basophils % 0.6 Nucleated RBC % 0.0 Absolute Neutrophils 5.87 Absolute Lymphocytes 2.00 Absolute Monocytes 1.01 H Absolute Eosinophils 0.31 Absolute Basophils 0.06 Sodium 141 Potassium 3.5 Chloride 104 Carbon Dioxide 25.9 Anion Gap 11.1 H BUN 14 Creatinine 0.8 Est GFR (CKD-EPI 2020) 116.90 Glucose 94 Calcium 8.6 Total Bilirubin 0.2 AST 24 ALT 34 Alkaline Phosphatase 98 Total Protein 6.8 Albumin 2.7 L Time Spent with Patient Time Spent with Patient: 25-34 minutes Time was spent: preparing to see the patient(eg.review tests), obtaining and/or reviewing separately otained hiistory, ordering medications,tests, procedures, referring, communicating with other health clinical care manager, indepentently interpreting results and counseling the patient
[2022-12-02 23:38] VITALS: BP 113/76; PULSE 61; RESP 18; TEMP 36.7; O2SAT 98
[2022-12-03] MEDS: VANCOMYCIN/WATER (PEG) 750 MG/150 ML BAG 150 MG IV (03:01)
[2022-12-03 07:11] VITALS: BP 116/75; PULSE 69; RESP 16; TEMP 36.5; O2SAT 96
[2022-12-03 07:21] LABS: ESR 36 mm/hr (0-15)
[2022-12-03 07:28] LABS: C-Reactive Protein 1.96 mg/dL (0.0-0.3)
[2022-12-03] MEDS: DULoxetine 30 MG CAP PO (07:56)
[2022-12-03] MEDS: Clindamycin 150 MG CAP 450 MG PO ×2 (07:57→17:18)
[2022-12-03] MEDS: Buprenorphine/Naloxone 8 mg/2 mg FILM 2 EACH SL (07:57)
--- NOTE | 2022-12-03 13:26 | PDOC.CMPRO ---
Date of service: 12/03/22 Time of Service: 13:26 Care Management Progress Note Progress Note Text Progress Note Text: S/O: Kirill continues to be closely monitored, per provider, anticipate ortho consult for worsening cellulitis. Diesel Dinkey Engineer consult requested for today. CM continues to follow. A: 37 year old male admitted to [facility] 11/30/22 for Cellulitis P: Leonardo will return home once medically cleared. He will transport via private vehicle. PCP Tele-doc protocol as Leonardo does not currently have a provider (T-doc: [facility]) CM faxed referral today (12/02/22) for follow up in the community. CM will continue to follow.
--- NOTE | 2022-12-03 14:12 | W.PM.PROGNOT ---
Date of Service Date of service: 12/03/22 Time of Service: 14:12 Assessment and Plan Assessment and plan (1) Cellulitis of right leg: Status: Acute Assessment and plan: CT is not c/w septic knee. One blood culture (aerobic) tube growing gram + cocci and gram neg cedric. Culture of pustule growing group A strep and mixed elana. Stopped vancomycin and initiated oral clindamycin. The blood culture + tube (1 of 2) is likely contaminant.? What appears to be an abscess of the prepatellar region that appears more inflammed today has prompted an orthopedic consult. (2) Opioid use disorder, moderate, dependence: Status: Acute Assessment and plan: He clearly has opoid use disorder and would benefit from medical treatment. After discussion with admitting hospitalist, suboxone was initiated. Getting x2 SL films of 8mg-2mg. Doing well. (3) Anxiety: Assessment and plan: He has had improvement in depression and anxiety with duloxetine and continue. Given valium for 1 day then d/c'd. PRN hydroxyzine. (4) Smoker: Status: Acute Assessment and plan: NRT prn (5) DVT prophylaxis: Status: Acute Assessment and plan: Low risk, not indicated. (6) Discharge planning issues: Status: Acute Assessment and plan: transit coach operator requested. Home on oral clindamycin if see response Subjective Subjective Patient reports: feels better and afebrile; denies nausea, vomiting or shortness of breath Exam Narrative Exam Narrative: GEN: Pleasant and interactive. LUNGS: CTAB with normal effort CV: RRR with no murmurs ABD: +BS, soft, NT/ND EXT: No edema or calf tenderness. NEURO: Normal movement of 4 extremities. Normal speech and coordination SKIN: scabbed ulcerations scattered on arms, no surrounding erythema. Right leg with scattered scabbed over lesions. Distal right knee with more erythema but not involving a larger area than on previous days. PSYCH: affect appropriate. A&O x 3. Objective Last Vital Signs Temp 36.5 C 12/03/22 07:11 Pulse 69 12/03/22 07:11 Resp 16 12/03/22 07:11 BP 116/75 12/03/22 07:11 Pulse Ox 96 12/03/22 07:11 Laboratory Results - last 24 hr 12/03/22 12/03/22 05:55 05:55 ESR 36 H C-Reactive Protein 1.96 H Time Spent with Patient Time Spent with Patient: 25-34 minutes Time was spent: preparing to see the patient(eg.review tests), obtaining and/or reviewing separately otained hiistory, ordering medications,tests, procedures, referring, communicating with other health youth care specialist, indepentently interpreting results, counseling the patient and care coordination
[2022-12-03 15:13] VITALS: BP 102/73; PULSE 63; RESP 16; TEMP 36.6; O2SAT 97
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
[2022-12-03] MEDS: Nicotine 21 MG/24 HR PATCH TD (17:22)
[2022-12-04] MEDS: Clindamycin 150 MG CAP 450 MG PO ×2 (00:23→07:50)
[2022-12-04 00:29] VITALS: BP 106/72; PULSE 73; RESP 16; TEMP 36.5; O2SAT 97
[2022-12-04 07:21] VITALS: BP 124/86; PULSE 82; TEMP 37; O2SAT 98
[2022-12-04 07:26] LABS: Abs Immature Grans 0.14 10^3/uL (0.0-0.06); Absolute Eosinophil Count 0.27 10^3/uL (0.0-0.7); Absolute Lymphocyte Count 2.44 10^3/uL (1.2-3.4); Absolute Monocyte Count 0.89 10^3/uL (0.1-0.8); Absolute Neutrophil Count 4.56 10^3/uL (1.2-6.7); Basophils % 1.2; Eosinophils % 3.2; HCT 42.7 % (40.0-50.0); HGB 14.5 g/dL (13.5-17.5); Immature Grans % 1.7; MCH 32.6 pg (27.0-33.0); MCV 96 fL (80-95); MPV 8.5 fL (8.0-11.0); Monocytes % 10.6; Neutrophils % 54.3; Platelet Count 362 10^3/uL (130-400); RBC 4.45 10^6/uL (4.36-5.78); RDW 11.9 % (11.8-14.1); RDW-SD 42.4 fL
[2022-12-04 07:44] LABS: C-Reactive Protein 1.13 mg/dL (0.0-0.3)
[2022-12-04] MEDS: DULoxetine 30 MG CAP PO (07:50)
[2022-12-04] MEDS: Nicotine 21 MG/24 HR PATCH TD (07:50)
[2022-12-04] MEDS: Buprenorphine/Naloxone 8 mg/2 mg FILM 2 EACH SL (07:51)
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
--- NOTE | 2022-12-04 12:33 | PDOC.CMDIS ---
Date of service: 12/04/22 Time of Service: 12:33 LACE Index Scoring Tool Questions: Length of Stay (in days): 4 - 6 Was the patient admitted via the E.D.?: Yes E.D. Visits: 2 Answers: Total Score: 9 Risk of Readmission: Low Risk Care Management Discharge Plan Reason for Hospitalization: Cellulitis Discharge Plan: Leonardo will return home once medically cleared. Leonardo does not currently have a provider (T-doc: [facility]) CM faxed referral for follow up in the community. CM also provided pitching coach referral-for follow up. Leonardo will transport via private vehicle. Patient/Family Education Needs: Review discharge instructions, discuss Ask Me Three.
== END 2022-12-04 10:48 | disposition home or self-care (01) | DRG 558 ==
LOC: ER 11-30 01:48 → MS 11-30 02:07
PROVIDERS: Family Medicine; Registered Nurse Emergency; Admitting Provider Family Medicine; Emergency Provider Emergency Medicine; Visit Provider Family Medicine
DX: M71.161 Other infective bursitis, right knee (principal); L03.115 Cellulitis of right lower limb; F32.2 Major depressive disorder, single episode, severe without psychotic features; F11.23 Opioid dependence with withdrawal; F41.9 Anxiety disorder, unspecified; F17.210 Nicotine dependence, cigarettes, uncomplicated; F14.90 Cocaine use, unspecified, uncomplicated; B95.0 Streptococcus, group A, as the cause of diseases classified elsewhere
CPT/HCPCS: 36415; 80048; 80053; 80307; 85652; 87040; 87077; 73701; 80202; 80320; 81003; 81015; 83605; 83735; 85025; 86140; 87070; 87186; 87205; 93306; 99232; 99239; J2405; J3490

== ENCOUNTER 2023-03-18 10:28 | Emergency (ER) | payer SELFPAY ==
[2023-03-18 10:33] VITALS: BP 132/74; PULSE 95; RESP 18; TEMP 36.9; O2SAT 96
--- NOTE | 2023-03-18 10:45 | DI.RAD_ITS ---
Exam(s) XR CHEST 2V PA LATERAL EXAM: XR CHEST 2V PA LATERAL CLINICAL HISTORY: cough TECHNIQUE: 2D digital imaging was performed. COMPARISON: No exams were available for comparison FINDINGS: HEART: Normal size. Aorta: Not dilated. PULMONARY VASCULATURE: Normal. LUNGS: Right middle lobe infiltrate. Question additional lingular infiltrate. PLEURAL SPACE: No pleural effusion or pneumothorax. BONE:Unremarkable for age. IMPRESSION: Right middle lobe infiltrate. Question lingular infiltrate. DATA REPOSITORY: RADIATION DOSE DELIVERED:
[2023-03-18] MEDS: Dexamethasone 10 MG/ML VIAL PO (10:58)
[2023-03-18] MEDS: Albuterol 2.5 MG/3 ML INH SOLN VIAL UPD (10:59)
[2023-03-18 11:02] VITALS: BP 121/80; TEMP 36.9; O2SAT 98
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
[2023-03-18] MEDS: Azithromycin 250 MG TAB 500 MG PO (13:30)
[2023-03-18] MEDS: Amoxicillin 875/Clav. 125 TAB PO (13:30)
[2023-03-18 13:32] VITALS: BP 123/77; PULSE 65; RESP 20; TEMP 37.3; O2SAT 96
== END 2023-03-18 13:33 | disposition home or self-care (01) ==
PROVIDERS: Emergency Provider Emergency Medicine
DX: J18.9 Pneumonia, unspecified organism (principal); F17.210 Nicotine dependence, cigarettes, uncomplicated
CPT/HCPCS: 94640; 99283; 71046; J1100; J7613

== ENCOUNTER 2023-04-10 06:12 | Emergency (ER) | payer MEDICAID, SELFPAY ==
[2023-04-10] VITALS (8 sets, daily range): BP systolic 110–132; BP diastolic 73–91; PULSE 53–70; RESP 10–18; TEMP 36.2–36.6; O2SAT 97–99
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
[2023-04-10 06:46] LABS: Abs Immature Grans 0.04 10^3/uL (0.0-0.06); Absolute Basophil Count 0.09 10^3/uL (0.0-0.2); Absolute Eosinophil Count 0.41 10^3/uL (0.0-0.7); Absolute Lymphocyte Count 2.78 10^3/uL (1.2-3.4); Absolute Monocyte Count 0.86 10^3/uL (0.1-0.8); Absolute Neutrophil Count 5.94 10^3/uL (1.2-6.7); Basophils % 0.9; Eosinophils % 4.1; HCT 41.3 % (40.0-50.0); HGB 14.7 g/dL (13.5-17.5); Immature Grans % 0.4; Lymphocytes % 27.5; MCH 32.9 pg (27.0-33.0); MCHC 35.6 % (32.0-36.0); MCV 92 fL (80-95); MPV 8.5 fL (8.0-11.0); Monocytes % 8.5; Neutrophils % 58.6; Platelet Count 285 10^3/uL (130-400); RBC 4.47 10^6/uL (4.36-5.78); RDW 12.1 % (11.8-14.1); RDW-SD 41.9 fL; WBC 10.12 10^3/uL (4.4-10.8)
[2023-04-10 07:11] LABS: Salicylate < 2.8 mg/dL (<2.8)
[2023-04-10 07:14] LABS: ALT 28 U/L (16-63); AST 18 U/L (15-37); Albumin 3.8 g/dL (3.4-5.0); Alkaline Phosphatase 81 U/L (46-116); Anion Gap 8.3 mmol/L (3-11); BUN 15 mg/dL (7-18); Bilirubin, Total 0.3 mg/dL (0.2-1.0); CO2 26.7 mmol/L (21.0-32.0); CREATININE 0.7 mg/dL (0.70-1.30); Calcium 9.2 mg/dL (8.5-10.1); Chloride 105 mmol/L (98-107); ETHANOL BLOOD 9.8 mg/dL (<10); Estimated GFR 121.71 (mL/min/1.73m2); Glucose 92 mg/dL (74-106); Potassium 3.7 mmol/L (3.5-5.1); Sodium 140 mmol/L (136-145); TSH (W/Ref FT4) 2.43 uIU/mL (0.36-3.74); Total Protein 7.4 g/dL (6.4-8.2)
[2023-04-10 07:15] LABS: *AMPHETAMINES SCREEN URINE Negative (Negative); *BARBITURATES SCREEN URINE Negative (Negative); *BENZODIAZEPINES SCREEN URINE Negative (Negative); Cannabinoids THC Negative (Negative); Cocaine Screen,Urine Positive (Negative); METHADONE URINE SCREEN Negative (Negative); OPIATES URINE SCREEN Negative (Negative)
[2023-04-10 07:24] LABS: Tricyclic Antidepressants Negative (Negative)
[2023-04-10 07:36] LABS: Acetaminophen < 2 ug/mL (10-30)
== END 2023-04-10 10:02 | disposition home or self-care (01) ==
PROVIDERS: Student in an Organized Health Care Education/Training Program; Emergency Provider Emergency Medicine
DX: F11.20 Opioid dependence, uncomplicated (principal); R45.851 Suicidal ideations; F41.9 Anxiety disorder, unspecified; F32.A Depression, unspecified; F43.10 Post-traumatic stress disorder, unspecified; Z72.0 Tobacco use
CPT/HCPCS: 36415; 80053; 80307; 99285; 80320; 80329; 84443; 85025

== ENCOUNTER 2023-04-10 10:35 | Emergency (ER) | payer MEDICAID, SELFPAY ==
[2023-04-10 10:38] VITALS: BP 130/90; PULSE 68; RESP 18; O2SAT 97
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
--- NOTE | 2023-04-10 13:13 | PDOC.MHCN ---
Date of service: 04/10/23 Time of Service: 13:13 PHQ-9 Over the last 2 weeks, how often have you been bothered by any of the following problems? 1. Little interest or pleasure in doing things: nearly every day 2. Feeling down, depressed, or hopeless: nearly every day 3. Trouble falling or staying asleep, or sleeping too much: nearly every day 4. Feeling tired or having little energy: nearly every day 5. Poor appetite or overeating: nearly every day 6. Feeling bad about yourself - or that you are a failure or have let yourself and your family down: more than half the days 7. Trouble concentrating on things, such as reading the newspaper or watching television: nearly every day 8. Moving or speaking so slowly that other people could have noticed? - Or the opposite - being so fidgety or restless that you have been moving around a lot more than usual: more than half the days 9. Thoughts that you would be better off or of hurting yourself in some way: nearly every day Total score: 25 If you checked off any problems, how difficult have these problems made it for you to do your work, take care of things at home, or get along with other people?: very difficult Source: Developed by Drs. Flaco Ho, Shaila Milton, Ho Zuniga and colleagues, with an educational placido from [employer]. Suicide Severity Rate CSSRS Have you wished you were or wished you could go to sleep and not wake up?: Yes Have you actually had any thoughts of killing yourself?: Yes CSSRS2 Have you been thinking about how you might do this?: Yes Have you had these thoughts and had some intention of acting on them?: Yes Have you started to work out or worked out the details of how to kill yourself? Do you intend to carry out this plan?: Yes CSSRS3 Have you ever done anything, started to do anything or prepared to do anything to end your life?: Yes CSSRS4 Was this within the past three months?: Yes Screening Score Total Score: 8 Screening: Positive Mental Health Emergency Note Release [facility] release signed:: Yes Reason for Visit The client arrived earlier today seeking help for his substance abuse issues. He noted he was hoping he would be admitted. He met with [facility] and was given resources. After discharge he waited in the waiting room for a bit, walked outside and then back in stating he wants to hang himself in his mother's barn. [facility] requested an assessment. This assessment is completed face to face at bedside with Rn Acute's Neville. The client agreed to complete intake. In the last 2 weeks has the pt presented for ES prior to today?: Yes, presented at [facility] ED Client Information Client is: New Well Housed: No,status: Homeless Non Suicidal Self Injury Current: No History: No Safety Risk/Harm to Self or Others Current Ideation to Harm Self or Others: Yes to self. (Reported he wants to hang himself in his mother's barn. ) Intent: yes, has intent. Plan: yes,has a plan. History of suicide attempt: yes,history of suicide attempt reported. Details of previous suicide attempt: Reported he has prepared to hang himself and cut his wrists. Risk: Does risk to harm exist?: yes. Access to means: Yes. Types of Means: Firearms (I could) and Other weapons. Details: Client reported he has access to knives and ropes. . Counseling provided: Yes Risk: Moderate Risk Duty to warn indicated: No Asssessment/Mental Status Appearance: Poor hygiene Attitude: Cooperative and Other (The client is savvy about how to get his needs met. ) Behavior: Other (Difficult time staying awake. ) Speech: Slow Affect: Flat Mood: Depressed and Anxious Thought process: Goal directed (To get into treatment for his SA and then go to [facility] if available for long term acute care registered nurse treatment. ) Hallucinations: No Delusions: No Attention: Poor concentration Perception: Not impaired Orientation: Fully orientated Memory: Intact Insight: Fair Judgement: Fair Neurovegetative Symptoms Sleep: Decrease Appetitie: Disordered (Will eat if he has food. Reported he has gotten a couple of retail charges for stealing food. ) Interests: Decrease Energy: Decrease Libido: Not applicable Substance Use: Drug Issues: Dependence Do you use nicotine?: Yes Have you used substances in the last 7 days?: yes, Fentanyl and crack 3-4 bags daily of each. Additional Issues: Assaultive/Threatening Behavior: No Medical Concerns: No Client engaged in active self harm w/weapon: No Threatening to run away: No Child reported abuse/neglect: No Voluntarily presenting for services: Yes Domestic violence is a concern: No Extreme Psychosis or extreme behavior is present: Yes Impression The client is a 37 year old, single, , homeless male in [facility]. He moved to [place] from [place] where his family lives. He reported he has been staying at a drug house and that he left the home this am not on good terms. He reported he has been asking for help and no one is helping him. He said that he went to the police and they wouldn't do anything. He came to the ED this am thinking he was going to be admitted and they didn't do that so he currently is having thoughts of suicide as I am cold, homeless, and have nothing and am detoxing. He He confirmed that this is a situational event. He described his mood as unstable. He scored a 25/27 on the PHQ-9 screening tool. His symptoms are most congruent with a MDD d/o (likely caused by substance abuse). It is clear that the client did not get the outcome he was expecting by addressing the SA itself this am so had no other recourse but to report SI to get the treatment he needs. He agreed that this was a situational event and did not have suicidal thoughts prior to this am even though on the PHQ-9 he answered nearly every day. The client presented sitting in the waiting room until ES' arrival. He was roomed in Room [address]. Upon entering the room he curled up in a ball on the bed and is difficult to keep awake for periods of time resulting in this clinician calling out his name to answer questions. He is observed being so tired that he is drooling and does not notice this to clean it up. He is observed curling and rubbing his legs on the bed which is not clear if this is due to being cold or his withdrawals. His eyes are bloodshot and he struggles to stay awake. He presents with a strong body odor as if he has not had the opportunity to bathe, His hands and nails have dirt caked on from lack of showering. His clothes are also as dirty. He has poor oral hygiene. Plan/Disposition Recommended Disposition: Hospitalization facilities contacted. Plan: The client will remain at [facility] pending admission to a psychiatric facility. He will be assessed daily. Person reported agreement to plan: Yes Facilities contacted if Applicable [facility] Not accepted, No bed available [facility] Not accepted, No bed available [facility] Not accepted, No bed available, [facility] [place] 2[facility] Not accepted, No bed available and Other Reports/communication Outcome discussed with: ED/Personnel
[2023-04-10] MEDS: Buprenorphine/Naloxone 12 mg/3 mg FILM 1 EACH SL (16:20)
[2023-04-10] MEDS: diazePAM 5 MG TAB PO ×2 (16:56→20:40)
[2023-04-10 23:59] VITALS: BP 118/82; PULSE 92; RESP 18; O2SAT 98
[2023-04-11] MEDS: diazePAM 5 MG TAB PO ×5 (01:16→19:37)
[2023-04-11 04:00] VITALS: BP 132/79; PULSE 78; RESP 18; O2SAT 98
--- NOTE | 2023-04-11 05:53 | NUR.NOTE ---
PT asked for another dose of Valium. PT was informed that it has been too soon since his last does.Nursing Note:
[2023-04-11] MEDS: DULoxetine 30 MG CAP PO (08:08)
[2023-04-11] MEDS: Buprenorphine/Naloxone 12 mg/3 mg FILM 1 EACH SL ×2 (08:08→18:30)
--- NOTE | 2023-04-11 14:46 | CMSP_ITS ---
Date of service: 04/11/23 Time of Service: 14:46 Care Management Safety Plan Status Status: Voluntary Reason for Wait Reason for Wait: Inpatient Admission Safety Plan Safety Plan: Leonardo was brought to [facility] on 04/10/23 by [facility], who stated that they called [facility] to inquire about recovery support for substance use, and they were advised to bring the patient to the ED. Leonardo was medically cleared, was provided resources for recovery, and was discharged. He then left [facility], returning shortly after stating that he is suicidal at this time due to not having housing, and because he is detoxing. He met with [facility], who evaluated him and found that he meets criteria for inpatient psychiatric placement. He is agreeable to this plan. VOLUNTARY FOR INPATIENT PSYCHIATRIC STABILIZATION.? Patient is appropriate in all interactions since arriving at [facility]; Pt has demonstrated appropriate coping and communication skills, has articulated his or her needs and concerns and is fully engaged during staff interactions. Safety plan has been established with patient, and care team, to adhere to patient goals, identify restrictions based on behavioral status, address nutri tion, and determine allowed personal belongings, tools for hygiene and personal care. Determine level of activity including ambulation, level of supervision, visitors, and determine privileges based on behaviors and level of engagement by pt. SAFETY PLAN: 1. Will remain on suicide precautions, in paper clothes 2. Will remain in room under direct supervision of one-on-one staff at all times provided by [employer]; IRENE, STRIPPER PRELIMINARY cargo supervisor. 3. May have paper cups, plates, finger foods as well as a cardboard spoon with which to eat meals. 4. Follow [facility] Management of the Admitted Behavioral Health Patient policy. 5. Comfort bath system, shower permitted with escort at RN discretion. 6. Personal belongings-soft items permitted at RN discretion. 7. Visitors-none at this time. 8. Activities: soft cart items approved per RN discretion. 9.? Bathroom privileges with escort in the ED. 10. Phone: limited to cordless phone at RN discretion. Due to VOLUNTARY status, if patient wishes to leave [facility], staff will contact [facility] Crisis Screener ([phone]) and On-Call Web Production Artist ([phone]) as soon as possible. In the event of elopement, notify [facility] Police ([phone]). Patient is currently voluntarily at [facility] and seeking inpatient admission when a bed becomes available. [facility] Frontline Ostrich Farm Worker will continue seeking placement. Please contact the Millinery Blocker Web Production Artist ([phone]) and [facility] Ostrich Farm Worker ([phone]) for any needed changes in the Safety Plan. Safety plan has been provided to interdepartmental care team.
--- NOTE | 2023-04-11 14:46 | PDOC.CMSAFE ---
Date of service: 04/11/23 Time of Service: 14:46 Care Management Safety Plan Status Status: Voluntary Reason for Wait Reason for Wait: Inpatient Admission Safety Plan Safety Plan: Leonardo was brought to [facility] on 04/10/23 by [facility], who stated that they called [facility] to inquire about recovery support for substance use, and they were advised to bring the patient to the ED. Leonardo was medically cleared, was provided resources for recovery, and was discharged. He then left [facility], returning shortly after stating that he is suicidal at this time due to not having housing, and because he is detoxing. He met with [facility], who evaluated him and found that he meets criteria for inpatient psychiatric placement. He is agreeable to this plan. VOLUNTARY FOR INPATIENT PSYCHIATRIC STABILIZATION.? Patient is appropriate in all interactions since arriving at [facility]; Pt has demonstrated appropriate coping and communication skills, has articulated his or her needs and concerns and is fully engaged during staff interactions. Safety plan has been established with patient, and care team, to adhere to patient goals, identify restrictions based on behavioral status, address nutrition, and determine allowed personal belongings, tools for hygiene and personal care. Determine level of activity including ambulation, level of supervision, visitors, and determine privileges based on behaviors and level of engagement by pt. SAFETY PLAN: 1. Will remain on suicide precautions, in paper clothes 2. Will remain in room under direct supervision of one-on-one staff at all times provided by [employer]; IRENE, CUT FILER artillery or naval gunfire observer. 3. May have paper cups, plates, finger foods as well as a cardboard spoon with which to eat meals. 4. Follow [facility] Management of the Admitted Behavioral Health Patient policy. 5. Comfort bath system, shower permitted with escort at RN discretion. 6. Personal belongings-soft items permitted at RN discretion. 7. Visitors-none at this time. 8. Activities: soft cart items approved per RN discretion. 9.? Bathroom privileges with escort in the ED. 10. Phone: limited to cordless phone at RN discretion. Due to VOLUNTARY status, if patient wishes to leave [facility], staff will contact [facility] Crisis Screener ([phone]) and On-Call Choke Reamer ([phone]) as soon as possible. In the event of elopement, notify [facility] Police ([phone]). Patient is currently voluntarily at [facility] and seeking inpatient admission when a bed becomes available. [facility] Frontline Air Tester will continue seeking placement. Please contact the Boat Buffer Plastic Choke Reamer ([phone]) and [facility] Air Tester ([phone]) for any needed changes in the Safety Plan. Safety plan has been provided to interdepartmental care team.
--- NOTE | 2023-04-11 14:51 | CMPROGNOTE_ITS ---
Date of service: 04/11/23 Time of Service: 14:51 Care Management Progress Note Progress Note Text Progress Note Text: CM was informed that Leonardo does not have current health insurance this morning. [facility] stated that they will not consider his referral until he has active insurance. CM faxed a referral to [facility], and spoke to them over the phone shortly after. [facility] talked to Leonardo over the phone, and was able to obtain his permission to assist him with a medicaid application, which was expedited due to access to care. [facility] called CM later this afternoon and stated that his MANFRED # is [id number], and it should be active within a few hours. CM called [facility] and they stated that they do not have a bed available, and do not expect any discharges for about 3-4 days. [facility] will continue to evaluate Leonardo daily, and will contact hospitals to inquire about admission status. CM will continue to follow.
--- NOTE | 2023-04-11 15:10 | PDOC.MHPN2 ---
Date of service: 04/11/23 Time of Service: 15:10 Mental Health Emergency Note Release [facility] release signed:: Yes Reason for Visit The client arrived to [facility] on 04.11.23 seeking help for his substance abuse issues. He noted he was hoping he would be admitted. He met with [facility] and was given resources. After discharge he waited in the waiting room for a bit, walked outside and then back in stating he wants to hang himself in his mother's barn. Today's assessment was completed face to face at bedside. In the last 2 weeks has the pt presented for ES prior to today?: Unknown Impression The client is a 37 year old, single, , homeless male in [facility]. He moved to [place] from [place] where his family lives. He reported he has been staying at a drug house and that he left the home on the morning of 04.10.23 not on good terms. He reported he has been asking for help and no one is helping him. He said that he went to the police and they wouldn't do anything. He came to the ED the same morning thinking he was going to be admitted and they didn't do that so reported he is having thoughts of suicide as I am cold, homeless, and have nothing and am detoxing. On 04.11.23, this clinician assessed the client face to face in Zone-B of [facility]. He is wrapped in his blanket and still reporting he is cold. He reported that he didn't sleep well and has been eating. He described his mood as irritable. He attributes his negative symptoms to his detoxing from substances. He places requests for warmer blankets, ice cream and some Valium which was requested of his nurse. The client is not endorsing SI today and denied HI. Plan/Disposition Recommended Disposition: Hospitalization (Had to resend referral due to him just receiving Medicaid. ) facilities contacted. Plan: The nurse will provide his requests and referrals will be sent out again now that he has insurance. He will be re-evaluated daily until placement is found by [facility]. Person reported agreement to plan: Yes Reports/communication Outcome discussed with: ED/Personnel
--- NOTE | 2023-04-11 18:18 | W.EDPROG ---
Date of service: 04/11/23 Time of Service: 18:18 Medical Decision Making Resting comfortably no acute distress. No acute events today. Patient here voluntarily awaiting placement Sign Out Sign Out Data: Sign Out Comment: mental health hold, voluntary for SI; hx of polysubstance, early mild opioid withdrawal, suboxone given, home meds ordered; awaiting possible placement Last updated by Brian Hooper MD at 04/10/23 16:53 Sign Out Comment: Patient stable throughout the night, voluntary hold, no interventions needed. Last updated by Jimbo Marvin DO at 04/11/23 07:00 Sign Out Comment: polysubstance abuse, depression, SI, voluntary awaiting placement Last updated by Brian Hooper MD at 04/11/23 18:17 Discharge Plan Discharge Details Chief Complaint: PsychEval Primary Care Provider: Unknown,Unknown ED Provider: Brian Hooper Home Meds and New Rx's Prescriptions: No Action duloxetine 30 mg Capsule,Delayed Release(Dr/Ec) 30 mg PO DAILY Qty: 30 0RF buprenorphine-naloxone 8-2 mg Film 2 ea sublingual DAILY Qty: 30 0RF diazepam 5 mg tablet 5 mg PO DAILY PRN PRNQty: 14 0RF Rx Instructions: Take for panic attack
[2023-04-11 19:53] VITALS: BP 132/86; PULSE 61; TEMP 35.8; O2SAT 97
[2023-04-12] MEDS: Haloperidol 5 MG TAB PO (00:22)
[2023-04-12] MEDS: diphenhydrAMINE 25 MG CAP 50 MG PO (01:42)
[2023-04-12] MEDS: LORazepam 1 MG TAB 2 MG PO (01:43)
[2023-04-12] MEDS: Melatonin 3 MG TAB 10 MG PO (01:43)
--- NOTE | 2023-04-12 07:27 | W.EDPROG ---
Date of service: 04/12/23 Time of Service: 07:27 Medical Decision Making Patient was signed out to me normal awaiting final disposition from mental health. Patient stable throughout the night but did request multiple times something for anxiety. In the end he got a total of his as needed Valium, 2 mg of Ativan orally, 5 mg of oral Haldol, 50 mg of Benadryl, and 10 mg of melatonin. This was given staggered throughout the night at the patient's request to help sleep and relax. Patient otherwise stable. Sign Out Sign Out Data: Sign Out Comment: mental health hold, voluntary for SI; hx of polysubstance, early mild opioid withdrawal, suboxone given, home meds ordered; awaiting possible placement Last updated by Brian Hooper MD at 04/10/23 16:53 Sign Out Comment: Patient stable throughout the night, voluntary hold, no interventions needed. Last updated by Jimbo Marvin DO at 04/11/23 07:00 Sign Out Comment: polysubstance abuse, depression, SI, voluntary awaiting placement Last updated by Brian Hooper MD at 04/11/23 18:17 Sign Out Comment: Patient remains voluntary waiting for dual diagnosis bed. No issues on my shift. Last updated by Flaco Medina MD at 04/11/23 23:26 Discharge Plan Discharge Details Chief Complaint: PsychEval Primary Care Provider: Unknown,Unknown ED Provider: Jimbo Marvin Home Meds and New Rx's Prescriptions: No Action duloxetine 30 mg Capsule,Delayed Release(Dr/Ec) 30 mg PO DAILY Qty: 30 0RF buprenorphine-naloxone 8-2 mg Film 2 ea sublingual DAILY Qty: 30 0RF diazepam 5 mg tablet 5 mg PO DAILY PRN PRNQty: 14 0RF Rx Instructions: Take for panic attack
[2023-04-12] MEDS: Buprenorphine/Naloxone 12 mg/3 mg FILM 1 EACH SL (09:30)
[2023-04-12] MEDS: DULoxetine 30 MG CAP PO (09:30)
--- NOTE | 2023-04-12 14:06 | NUR.NOTE ---
140 [facility] called stating that they would not accept this patient. Nursing Note:
--- NOTE | 2023-04-12 14:58 | W.EDPROG ---
Date of service: 04/12/23 Time of Service: 14:58 Medical Decision Making Patient has been reevaluated by [facility] services. Has been cleared for discharge with safety plan. Patient calm cooperative. No acute distress. Sign Out Sign Out Data: Sign Out Comment: mental health hold, voluntary for SI; hx of polysubstance, early mild opioid withdrawal, suboxone given, home meds ordered; awaiting possible placement Last updated by Brian Hooper MD at 04/10/23 16:53 Sign Out Comment: Patient stable throughout the night, voluntary hold, no interventions needed. Last updated by Jimbo Marvin DO at 04/11/23 07:00 Sign Out Comment: polysubstance abuse, depression, SI, voluntary awaiting placement Last updated by Brian Hooper MD at 04/11/23 18:17 Sign Out Comment: Patient remains voluntary waiting for dual diagnosis bed. No issues on my shift. Last updated by Flaco Medina MD at 04/11/23 23:26 Sign Out Comment: Stable throughout the night, did require at patient's request Benadryl melatonin Ativan and Haldol. Last updated by Jimbo Marvin DO at 04/12/23 07:29 Discharge Plan Disposition Patient Disposition: Home Condition: Improving Discharge Details Chief Complaint: PsychEval Clinical Impression: Substance abuse, Depression Primary Care Provider: Unknown,Unknown ED Provider: Brian Hooper Home Meds and New Rx's Prescriptions: No Action duloxetine 30 mg Capsule,Delayed Release(Dr/Ec) 30 mg PO DAILY Qty: 30 0RF buprenorphine-naloxone 8-2 mg Film 2 ea sublingual DAILY Qty: 30 0RF diazepam 5 mg tablet 5 mg PO DAILY PRN PRNQty: 14 0RF Rx Instructions: Take for panic attack Discharge Instructions Instructions: Depression (ED) Additional Instructions: Please follow-up with [facility]. Please return to the emergency department for any worsening symptoms
--- NOTE | 2023-04-12 16:06 | PDOC.CMPRO ---
Date of service: 04/12/23 Time of Service: 16:07 Care Management Progress Note Progress Note Text Progress Note Text: Leonardo was discharged back to the community on a safety plan formulated with [facility] crisis screener Reinaldo. He now has active Medicaid. His Medicaid number is : [id number].
--- NOTE | 2023-04-13 10:40 | PDOC.MHCN ---
Date of service: 04/12/23 Time of Service: 11:45 PHQ-9 Over the last 2 weeks, how often have you been bothered by any of the following problems? 1. Little interest or pleasure in doing things: not at all 2. Feeling down, depressed, or hopeless: several days 3. Trouble falling or staying asleep, or sleeping too much: several days 4. Feeling tired or having little energy: not at all 5. Poor appetite or overeating: several days 6. Feeling bad about yourself - or that you are a failure or have let yourself and your family down: several days 7. Trouble concentrating on things, such as reading the newspaper or watching television: not at all 8. Moving or speaking so slowly that other people could have noticed? - Or the opposite - being so fidgety or restless that you have been moving around a lot more than usual: not at all 9. Thoughts that you would be better off or of hurting yourself in some way: not at all Total score: 4 If you checked off any problems, how difficult have these problems made it for you to do your work, take care of things at home, or get along with other people?: somewhat difficult Source: Developed by Drs. Flaco Ho, Shaila Milton, Ho Zuniga and colleagues, with an educational placido from [employer]. Suicide Severity Rate CSSRS Have you wished you were or wished you could go to sleep and not wake up?: No Have you actually had any thoughts of killing yourself?: No CSSRS2 Have you been thinking about how you might do this?: No Have you had these thoughts and had some intention of acting on them?: No Have you started to work out or worked out the details of how to kill yourself? Do you intend to carry out this plan?: No CSSRS3 Have you ever done anything, started to do anything or prepared to do anything to end your life?: No CSSRS4 Was this within the past three months?: No Screening Score Total Score: 0 Screening: Negative Mental Health Emergency Note Release HS release signed:: Yes Reason for Visit Patient originally arrived on 04/10/23. He was treated and released but then returned stating he was very suicidal. He was assessed by mental health and found to be stating he was suicidal and wanted to . However he has admitted to hospital staff and this clinician that he said he was suicidal due to not having any place to call home. His mother was reached out to as she lives locally but there was no contact made due to no answer He was Safety planned and released form the hospital in hopes in would go to his mother's house. In the last 2 weeks has the pt presented for ES prior to today?: Yes, presented at Non Suicidal Self Injury Current: No History: No Safety Risk/Harm to Self or Others Current Ideation to Harm Self or Others: No Risk: Does risk to harm exist?: No Risk: Low Risk Duty to warn indicated: No Asssessment/Mental Status Appearance: Other Attitude: Cooperative and Friendly Behavior: Other Speech: Normal Affect: Normal Mood: Elevated and Stressed Thought process: Goal directed Hallucinations: No Delusions: No Attention: Unremarkable Perception: Not impaired Orientation: Fully orientated Memory: Intact Insight: Fair Neurovegetative Symptoms Sleep: Decrease Appetitie: Disordered Interests: No change Energy: No change Libido: Not applicable Substance Use: Other Drug Issues: Dependence Do you use nicotine?: Yes Have you used substances in the last 7 days?: yes, weekly Additional Issues: Assaultive/Threatening Behavior: No Medical Concerns: No Client engaged in active self harm w/weapon: No Threatening to run away: No Child reported abuse/neglect: No Voluntarily presenting for services: Yes Domestic violence is a concern: No Extreme Psychosis or extreme behavior is present: No Impression This client was in the Er due to wanting help with addiciton but later finding out that he made himself homeless as he was told by his mother that he could not reurne unless he detoxed and was no longer using. Resources Reosurces reviewed and given:: 988 and [facility] Plan/Disposition Recommended Disposition: [facility] Services [facility] Services: Therapy and Other, Therapy and Community resources. Plan: Safety Planned and released today Reports/communication Outcome discussed with: ED/Personnel
== END 2023-04-12 15:43 | disposition home or self-care (01) ==
PROVIDERS: Emergency Provider Emergency Medicine
DX: F32.A Depression, unspecified (principal); F19.10 Other psychoactive substance abuse, uncomplicated; F11.20 Opioid dependence, uncomplicated; F19.130 Other psychoactive substance abuse with withdrawal, uncomplicated
CPT/HCPCS: 00123; 96127; 99285; H0046; 99283

== ENCOUNTER 2023-10-20 23:44 | Emergency (ER) | payer SELFPAY ==
[2023-10-20 23:48] VITALS: BP 113/83; PULSE 104; RESP 16; TEMP 37; O2SAT 99
== END 2023-10-21 00:16 ==
DX: Z53.21 Procedure and treatment not carried out due to patient leaving prior to being seen by health care provider (principal)

== ENCOUNTER 2023-10-21 02:34 | Emergency (ER) | payer SELFPAY ==
[2023-10-21 02:37] VITALS: BP 121/82; PULSE 122; RESP 18; TEMP 36.2; O2SAT 99
--- NOTE | 2023-10-21 02:59 | ED.GENADUL_ITS ---
Discharge Plan Discharge Details Chief Complaint: PsychEval Primary Care Provider: Unknown,Unknown ED Provider: Shital Vargas Home Meds and New Rx's Prescriptions: No Action duloxetine 30 mg Capsule,Delayed Release(Dr/Ec) 30 mg PO DAILY Qty: 30 0RF buprenorphine-naloxone 8-2 mg Film 2 ea sublingual DAILY Qty: 30 0RF diazepam 5 mg tablet 5 mg PO DAILY PRN PRNQty: 14 0RF Rx Instructions: Take for panic attack HPI General Mode of arrival: ambulatory . Date/Time Provider Initiated Documentation: 10/21/23 02:59 . Limitations to Documentation: no limitations . Information obtained by: patient . HPI Narrative: 38yo M with hx of depression, anxiety, polysubstance use, presenting wtih worsening depression and passive SI. Presented to the ED earlier in the night but left immediately after completing triage and nursing assessment without being seen by physician. Returned approximately 3 hours later and requested to be seen. He reports that he has been sober for the past 5 months until about a week and a half ago. Over the past five months he has felt very depressed, down, low energy, sleeping for 16 hours a day (or sometimes not sleeping at all), sometimes has passive SI but no plan and states he would not take any actions. No prior suicide attempts. Last week he began using again, including overdosing on fentanyl and crack requiring narcan. He also began drinking again, 12 beers today, similar daily consumption over the past week. No prior history of ETOH withdrawal or DTs. Requesting mental health evaluation and as sistance with substance use treatment. Unclear if he has had prior psychiatric hospitalizations, states he has been inpatient in the hospital for psych before but only at [facility] (there is no inpatient psychiatric treatment here). He is otherwise in his usual state of health with no physical complaints. Related Data Home Medications Medication Instructions Recorded Confirmed buprenorphine 8 mg-naloxone 2 mg 2 ea sublingual DAILY #30 ea 12/04/22 10/20/23 sublingual film diazepam 5 mg tablet 5 mg PO DAILY PRN PRN #14 tabs 12/04/22 10/20/23 duloxetine 30 mg capsule,delayed 30 mg PO DAILY #30 caps 12/04/22 10/20/23 release Previous Rx's Medication Instructions Recorded buprenorphine 8 mg-naloxone 2 mg 2 ea sublingual DAILY #30 ea 12/04/22 sublingual film diazepam 5 mg tablet 5 mg PO DAILY PRN PRN #14 tabs 12/04/22 duloxetine 30 mg capsule,delayed 30 mg PO DAILY #30 caps 12/04/22 release Allergies Allergy/AdvReac Type Severity Reaction Status Date / Time No Known Allergies Allergy Unverified 10/20/23 23:57 General Stated Complaint: PsychEval CORINA: 2 Review of Systems Narrative: see HPI Exam Narrative Exam Narrative: General: Alert, well appearing, well nourished, in no acute distress. Head: Normocephalic, atraumatic Neck: Trachea midline, ?Neck supple. Cardiac: ?RRR, no murmurs appreciated Resp: No respiratory distress. CTAB. Abd: Non-distended. Extremities: ?No deformities.? No peripheral edema. Neurologic: GCS 15. ? Moves all extremities freely against gravity Psych: Calm, cooperative.? Adequately groomed.? Mood down, affect congruent.? Speech with normal volume, rate, rythym and tone. Linear and goal directed.? Denies SI/HI/AH/VH. ? Does not appear to be responding to internal stimuli. No abnormal movements noted. Course Vital Signs Vital signs: Vital Signs Temperature 36.2 C L 10/21/23 02:37 Pulse 122 H 10/21/23 02:37 Respiratory Rate 18 10/21/23 02:37 Blood Pressure 121/82 10/21/23 02:37 Pulse Oximetry 99 10/21/23 02:37 Temperature 36.2 C L 10/21/23 02:37 Temperature Source Temporal Artery Scan 10/21/23 02:37 Pulse 122 H 10/21/23 02:37 Respiratory Rate 18 10/21/23 02:37 Respiratory Effort Normal, Non-Labored 10/21/23 02:40 Respiratory Pattern Normal 10/21/23 02:44 Blood Pressure 121/82 10/21/23 02:37 Blood Pressure Position Supine 10/21/23 02:37 Pulse Oximetry 99 10/21/23 02:37 Oxygen Delivery Method Room Air 10/21/23 02:37 Oxygen Flow Rate 0 10/21/23 02:37 Pain Level 0 10/21/23 02:37 Medical Decision Making 38yo M with hx of depression, anxiety, polysubstance use, presenting wtih worsening depression and intermittent passive SI. Presented to the ED earlier in the night but left immediately after completing triage and nursing assessment without being seen by physician. Returned approximately 3 hours later and requested to be seen. Here for depression, intermittent passive SI, and requesting mental health evaluation and help with substance use. Tachycardiac on arrival after ambulating into department, vital signs and physical exam otherwise reassuring. Repeat vital signs with HR in 90's without intervention. No SI currently. Benign physical exam. With hx of polysubstance use and heavy ETOH consumption today, will send screening labs for medical clearance. Placed on CIWA. No indication of immediate risk for harm of self or others; does not meet involuntary criteria and will be allowed to leave should he again change his mind about staying for evaluation and treatment. Labs reviewed as below, CBC & CMP unremarkable, serum ethanol 100.2. Signed out to jonathan briceno, plan for [facility] evaluation when sober. Lab Data Lab results reviewed: Yes I reviewed the patient's lab results. Labs: Laboratory Tests Range/Units 10/21/23 10/21/23 03:10 03:13 WBC (4.4-10.8) 10^3/uL 8.40 RBC (4.36-5.78) 10^6/uL 5.07 Hgb (13.5-17.5) g/dL 16.2 Hct (40.0-50.0) % 46.2 MCV (80-95) fL 91 MCH (27.0-33.0) pg 32.0 MCHC (32.0-36.0) % 35.1 RDW (11.8-14.1) % 13.7 Plt Count (130-400) 10^3/uL 278 MPV (8.0-11.0) fL 8.6 Immature Gran % % 0.6 Neutrophils % % 65.4 Lymphocytes % % 24.2 Monocytes % % 7.5 Eosinophils % % 1.7 Basophils % % 0.6 Nucleated RBC % (0.0-0.3) % 0.0 Absolute Neutrophils (1.2-6.7) 10^3/uL 5.50 Absolute Lymphocytes (1.2-3.4) 10^3/uL 2.03 Absolute Monocytes (0.1-0.8) 10^3/uL 0.63 Absolute Eosinophils (0.0-0.7) 10^3/uL 0.14 Absolute Basophils (0.0-0.2) 10^3/uL 0.05 Sodium (136-145) mmol/L 143 Potassium (3.5-5.1) mmol/L 3.7 Chloride (98-107) mmol/L 105 Carbon Dioxide (21.0-32.0) mmol/L 25.3 Anion Gap (3-11) mmol/L 12.7 H BUN (7-18) mg/dL 11 Creatinine (0.70-1.30) mg/dL 1.0 Est GFR (CKD-EPI 2020) (mL/min/1.73m2) 98.80 Glucose (74-106) mg/dL 100 Calcium (8.5-10.1) mg/dL 8.4 L Magnesium (1.8-2.4) mg/dL 2.0 Total Bilirubin (0.2-1.0) mg/dL 0.4 AST (15-37) U/L 10 L ALT (16-63) U/L 34 Alkaline Phosphatase (46-116) U/L 84 Total Protein (6.4-8.2) g/dL 7.3 Albumin (3.4-5.0) g/dL 4.1 Urine Opiates Screen (Negative) Negative Urine Methadone Screen (Negative) Negative Ur Barbiturates Screen (Negative) Negative Ur Tricyclics Screen (Negative) Negative Ur Amphetamines Screen (Negative) Negative U Benzodiazepines Scrn (Negative) Negative Urine Cocaine Screen (Negative) Negative Ur THC Screen (Negative) Negative Ethyl Alcohol (<10) mg/dL 100.2 H Quality:SDOH Health Related Social Needs: No Data to Display PFSH All Active Problems (Updated 05/13/23 @ 00:05 by [facility]) Septic prepatellar bursitis of right knee (Acute) Smoker (Acute) Opioid use disorder, moderate, dependence (Acute) Cellulitis of right leg (Acute) Depression (Chronic) Substance abuse (Acute) Suicidal thoughts (Acute) Medical History PTSD (post-traumatic stress disorder) Anxiety Depression Surgical History No significant past surgical history Social History Smoking/Tobacco Use Status: Current every day Tobacco Type: cigarettes Tobacco: How many years used: 25 Smoking risk assessment performed?: Yes Alcohol Intake: current Alcohol Intake frequency: 3 or more drinks per day Alcohol type: beer and hard liquor Drug use: Daily Substance use type: marijuana, crack/cocaine, heroin and opiates Details: Last use of crack and fentanyl on 10/15/23 Housing: other Do you feel safe at home: Yes Do you feel safe in your relationship?: Yes PAWSS Have you Been Recently Intoxicated or Drunk Within the Last 30 days?: Yes Have you Ever Experienced Previous Episodes of Alcohol Withdrawal?: Yes Have you ever Experienced Withdrawal Seizures?: No Have you ever Experienced Delirium Tremens(DT)s?: No Have you ever undergone Alcohol Rehabilitation Treatment (i.e, inpt ot outpatient treatment programs)?: Yes Have you ever Experienced Blackouts?: No Have you ever Combined Alcohol with other Downers within the last 90 days?: Yes Have you ever Combined Alcohol with any other Substance of Abuse during the last 90 days?: Yes Positive Blood Alcohol level on Presentation? [PCS.BAL]: Yes Evidence of Increased Autonomic Activity (i.e. HR>120, tremor, sweating, agitation, nausea)?: Yes Result: 7
[2023-10-21 03:23] LABS: Abs Immature Grans 0.05 10^3/uL (0.0-0.06); Absolute Basophil Count 0.05 10^3/uL (0.0-0.2); Absolute Eosinophil Count 0.14 10^3/uL (0.0-0.7); Absolute Lymphocyte Count 2.03 10^3/uL (1.2-3.4); Absolute Monocyte Count 0.63 10^3/uL (0.1-0.8); Basophils % 0.6 %; Eosinophils % 1.7 %; HCT 46.2 % (40.0-50.0); HGB 16.2 g/dL (13.5-17.5); Immature Grans % 0.6 %; Lymphocytes % 24.2 %; MCHC 35.1 % (32.0-36.0); MCV 91 fL (80-95); MPV 8.6 fL (8.0-11.0); Monocytes % 7.5 %; Neutrophils % 65.4 %; Platelet Count 278 10^3/uL (130-400); RBC 5.07 10^6/uL (4.36-5.78); RDW 13.7 % (11.8-14.1); RDW-SD 45.5 fL
[2023-10-21 03:35] LABS: ALT 34 U/L (16-63); AST 10 U/L (15-37); Albumin 4.1 g/dL (3.4-5.0); Alkaline Phosphatase 84 U/L (46-116); Anion Gap 12.7 mmol/L (3-11); BUN 11 mg/dL (7-18); Bilirubin, Total 0.4 mg/dL (0.2-1.0); CO2 25.3 mmol/L (21.0-32.0); Chloride 105 mmol/L (98-107); ETHANOL BLOOD 100.2 mg/dL (<10); Glucose 100 mg/dL (74-106); Potassium 3.7 mmol/L (3.5-5.1); Sodium 143 mmol/L (136-145); Total Protein 7.3 g/dL (6.4-8.2)
[2023-10-21 03:38] LABS: Calcium 8.4 mg/dL (8.5-10.1)
[2023-10-21 03:39] LABS: *AMPHETAMINES SCREEN URINE Negative (Negative); *BARBITURATES SCREEN URINE Negative (Negative); *BENZODIAZEPINES SCREEN URINE Negative (Negative); Cannabinoids THC Negative (Negative); Cocaine Screen,Urine Negative (Negative); METHADONE URINE SCREEN Negative (Negative); OPIATES URINE SCREEN Negative (Negative)
[2023-10-21 03:40] LABS: Tricyclic Antidepressants Negative (Negative)
[2023-10-21] MEDS: Melatonin 3 MG TAB PO (04:03)
--- NOTE | 2023-10-21 06:58 | W.EDPROG ---
Date of service: 10/21/23 Time of Service: 06:58 Medical Decision Making Patient accepted in signout from off going physician. He is a 38-year-old gentleman with polysubstance use disorder. Increasing depression and thoughts. [facility] The patient has agreed to safety with mental health and has been provided resources to use as needed but it sounds like he is going to be returning to [place] where he feels more comfortable sobriety. Medical Records Medical records reviewed: Yes I reviewed the patient's medical records. Lab Data Lab results reviewed: Yes I reviewed the patient's lab results. Quality:[facility] Health Related Social Needs: No Data to Display Sign Out Sign Out Data: Sign Out Comment: Polysubstance use, depression & passive SI, pending [facility] when sober and referrals for substance use treatment if discharged Last updated by Shital Vargas MD at 10/21/23 06:41 Discharge Plan Disposition Patient Disposition: Home Discharge Details Clinical Impression: Substance abuse, Depression Primary Care Provider: Unknown,Unknown ED Provider: Carlos A Ngo Home Meds and New Rx's Prescriptions: No Action duloxetine 30 mg Capsule,Delayed Release(Dr/Ec) 30 mg PO DAILY Qty: 30 0RF buprenorphine-naloxone 8-2 mg Film 2 ea sublingual DAILY Qty: 30 0RF Discharge Instructions Additional Instructions: please follow the saftey plan agreed with [facility] sounds like [facility] is a great option for your continued sobriety, but if you stay in the area there are resources available to help you
[2023-10-21] MEDS: diazePAM 5 MG TAB 10 MG PO (13:40)
[2023-10-21 14:16] VITALS: BP 120/82; PULSE 46; RESP 16; TEMP 35.8; O2SAT 98
== END 2023-10-21 14:28 | disposition home or self-care (01) ==
PROVIDERS: Student in an Organized Health Care Education/Training Program; Emergency Provider Emergency Medicine
DX: F32.A Depression, unspecified (principal); F41.9 Anxiety disorder, unspecified; F19.90 Other psychoactive substance use, unspecified, uncomplicated; F10.120 Alcohol abuse with intoxication, uncomplicated; F17.210 Nicotine dependence, cigarettes, uncomplicated; Y90.5 Blood alcohol level of 100-119 mg/100 ml
CPT/HCPCS: 00123; 36415; 80053; 80307; 99284; 80320; 83735; 85025